=== PATIENT | male | born 1950 | race Caucasian/White ===

== ENCOUNTER → 2018-09-14 07:41 | Outpatient (CLI) | payer MEDICARE, SELFPAY ==
[2018-09-14 08:20] LABS: Appearance Urine UA CLEAR; Bilirubin Urine UA NEGATIVE (NEGATIVE); Color Urine UA YELLOW; Glucose Urine UA NEGATIVE (Negative); Ketones Urine UA NEGATIVE (NEGATIVE); Leukocyte Esterase Urine UA NEGATIVE (NEGATIVE); Nitrite Urine UA NEGATIVE (Negative); Occult Blood Urine UA NEGATIVE (Negative); Protein Urine UA NEGATIVE (Negative); Urobilinogen Urine UA 0.2 E.U./dL (0.2); pH Urine UA 6.5 (4.5-8.0)
[2018-09-14 08:22] LABS: Add Manual Diff / Slide Review NO; Basophils Absolute Auto 0 /uL (0-100); Basophils Percent Auto 0.6 % (0-2); Eosinophils Absolute Auto 100 /uL (0-450); Eosinophils Percent Auto 2.3 % (2-4); Hematocrit 42.1 % (41-53); Hemoglobin 14.6 g/dL (13.5-17.5); Lymphocytes Absolute Auto 1900 /uL (1100-4500); Lymphocytes Percent Auto 30.3 % (25-40); Mean Corpuscular HGB Conc 34.8 % (30-36); Mean Corpuscular Volume 80.5 fL (80-100); Monocytes Absolute Auto 600 /uL (0-900); Monocytes Percent Auto 8.9 % (3-14); Neutrophils Absolute Auto 3700 /uL (1500-7000); Neutrophils Percent Auto 57.9 % (50-75); Platelet Count 280 X10^3/uL (150-400); Red Blood Cell Count 5.22 X10^6/uL (4.5-5.9); Red Cell Distribution Width 13.8 % (11.6-14.8); White Blood Cell Count 6.4 X10^3/uL (4.5-11.0)
[2018-09-14 08:48] LABS: Alanine Aminotransferase 51 IU/L (21-72); Albumin 4.7 g/dL (3.5-5.0); Albumin Globulin Ratio 1.4 (1.0-2.8); Alkaline Phosphatase 94 U/L (38-126); Aspartate Aminotransferase 40 IU/L (17-59); Bilirubin Total 1.3 mg/dL (0.2-1.3); Blood Urea Nitrogen 18 mg/dL (9-20); Calcium 9.5 mg/dL (8.4-10.2); Carbon Dioxide 30 mmol/L (22-32); Chloride 101 mmol/L (98-107); Cholesterol 277 mg/dL (140-199); Estimated Glomerular Filt Rate > 60.0 mL/min (>60); Globulin 3.3 g/dL (1.7-4.1); Glucose 100 mg/dL (80-110); HDL Cholesterol 50 mg/dL (40-60); HEMOLYSIS < 15 (0-50); LDL Cholesterol Calculated 211 mg/dL (<100); Potassium 4.8 mmol/L (3.4-5.1); Sodium 140 mmol/L (137-145); Triglycerides 82 mg/dL (35-150)
[2018-09-14 09:10] LABS: Thyroid Stimulating Hormone 2.77 uIU/mL (0.47-4.68)
== END ==
PROVIDERS: PCP Family Medicine; Visit Provider Internal Medicine Interventional Cardiology
DX: I10 Essential (primary) hypertension (principal); I35.1 Nonrheumatic aortic (valve) insufficiency; I77.810 Thoracic aortic ectasia; F52.21 Male erectile disorder; G62.9 Polyneuropathy, unspecified; Z51.81 Encounter for therapeutic drug level monitoring; E78.5 Hyperlipidemia, unspecified; Z12.5 Encounter for screening for malignant neoplasm of prostate
CPT/HCPCS: 36415; 80053; 80061; 81003; 84403; 84443; 85025; G0103

== ENCOUNTER → 2018-12-04 08:24 | Outpatient (CLI) | payer MEDICARE, SELFPAY ==
[2018-12-10 09:25] LABS: PSA Total 4.53 ng/mL (< 4.01); Reflex Free PSA 0.6 ng/mL
== END ==
PROVIDERS: PCP Family Medicine; Visit Provider Urology
DX: R97.20 Elevated prostate specific antigen [PSA] (principal); Z12.5 Encounter for screening for malignant neoplasm of prostate
CPT/HCPCS: 36415; 84153; 84154

== ENCOUNTER 2018-12-26 23:26 | Inpatient (IN) | payer MEDICARE, SELFPAY ==
[2018-12-26 23:44] VITALS: BP 153/81; PULSE 79; RESP 18; TEMP 36.3; O2SAT 96; BMI 28.0
[2018-12-27] VITALS (22 sets, daily range): BP systolic 102–156; BP diastolic 54–95; PULSE 58–92; RESP 6–20; TEMP 36.1–37.4; O2SAT 88–100; BMI 28.0
[2018-12-27] MEDS: SODIUM CHLORIDE 0.9% 1,000 ML 150 ML IV (00:26)
[2018-12-27 01:31] LABS: Add Manual Diff / Slide Review NO; Basophils Absolute Auto 0 /uL (0-100); Basophils Percent Auto 0.3 % (0-2); Eosinophils Absolute Auto 100 /uL (0-450); Eosinophils Percent Auto 0.5 % (2-4); Hematocrit 40.3 % (41-53); Hemoglobin 13.9 g/dL (13.5-17.5); Lymphocytes Absolute Auto 1100 /uL (1100-4500); Lymphocytes Percent Auto 9.3 % (25-40); Mean Corpuscular HGB Conc 34.5 % (30-36); Mean Corpuscular Hemoglobin 27.7 PG (26-34); Mean Corpuscular Volume 80.1 fL (80-100); Monocytes Absolute Auto 500 /uL (0-900); Monocytes Percent Auto 4.2 % (3-14); Neutrophils Absolute Auto 9800 /uL (1500-7000); Neutrophils Percent Auto 85.7 % (50-75); Platelet Count 230 X10^3/uL (150-400); Red Blood Cell Count 5.03 X10^6/uL (4.5-5.9); Red Cell Distribution Width 13.9 % (11.6-14.8); White Blood Cell Count 11.4 X10^3/uL (4.5-11.0)
[2018-12-27 01:41] LABS: Alanine Aminotransferase 88 IU/L (21-72); Albumin 4.7 g/dL (3.5-5.0); Albumin Globulin Ratio 1.6 (1.0-2.8); Alkaline Phosphatase 108 U/L (38-126); Aspartate Aminotransferase 55 IU/L (17-59); BUN Creatinine Ratio 25.6 (6-22); Bilirubin Total 1.4 mg/dL (0.2-1.3); Blood Urea Nitrogen 23 mg/dL (9-20); Calcium 9.8 mg/dL (8.4-10.2); Carbon Dioxide 30 mmol/L (22-32); Chloride 100 mmol/L (98-107); Estimated Glomerular Filt Rate > 60.0 mL/min (>60); Glucose 125 mg/dL (80-110); HEMOLYSIS < 15 (0-50); Lipase 88 U/L (23-300); Potassium 4.5 mmol/L (3.4-5.1); Sodium 139 mmol/L (137-145); Total Protein 7.7 g/dL (6.3-8.2)
--- NOTE | 2018-12-27 03:19 | DI.RAD.S_ITS ---
PROCEDURE: XR ACUTE ABDOMEN SERIES INDICATIONS: Abdominal pain TECHNIQUE: One view chest and two views of the abdomen were acquired. COMPARISON: None. FINDINGS: Surgical changes and devices: None. Chest: Mild bibasilar atelectatic changes. Otherwise clear lungs. Heart size is normal. No pleural effusions. No pneumoperitoneum. Abdomen: Relative paucity of small bowel gas. No air-fluid levels visible. No suspicious calcifications. Visualized solid organ contours appear normal. Bones: No suspicious bony lesions. Degenerative disc change at L5-S1. IMPRESSION: No radiographic evidence of acute process. Dictated by: Uzma Lewis M.D. on 12/27/2018 at 8:25 Approved by: Uzma Lewis M.D. on 12/27/2018 at 8:27
--- NOTE | 2018-12-27 03:33 | DI.CT.S_ITS ---
PROCEDURE: CT ABDOMEN PELVIS W CON INDICATIONS: severe abdominal pain TECHNIQUE: After the administration of intravenous contrast, 5 mm thick sections acquired from the diaphragm to the symphysis. 5 mm coronal and sagittal reformats were acquired. For radiation dose reduction, the following was used: automated exposure control, adjustment of mA and/or kV according to patient size. COMPARISON: None. FINDINGS: Image quality: Excellent. ABDOMEN: Lung bases: Lung bases are clear. Heart size is normal. Solid organs: Liver is normal in size and enhancement. A few tiny scattered hepatic cystic structures too small to accurately characterize. Gallbladder is decompressed. Biliary system is non dilated. Pancreas enhances normally. Spleen is normal in size and enhancement. No adrenal nodules. Kidneys demonstrate normal size and enhancement, without hydronephrosis. 2.8 cm left interpolar cystic structure, indeterminate on this study. Punctate right upper pole intrarenal calculus. Peritoneum and bowel: Mildly dilated left abdominal small bowel loops with signs of stasis in the left lower quadrant. A transition point is identified in the left lower quadrant (series 2 image 67 and series 4 image 33). Immediately distal, the small bowel loops demonstrate circumferentially thickened becerra. The ileum is largely decompressed. A normal appendix is present. Normal quantity of stool in the colon. The small amount of free fluid is dependent in the pelvis and also seen in the left lower quadrant. No abscess. Nodes and vessels: No retroperitoneal or mesenteric adenopathy by size criteria. Aorta and inferior vena cava are normal in size. Miscellaneous: No ventral hernias. PELVIS: Genitourinary: Bladder wall thickness is normal. Miscellaneous: No inguinal hernias or adenopathy. Bones: No suspicious bony lesions. No vertebral body compression fractures. IMPRESSION: 1. Small bowel obstruction with transition point identified in the left lower quadrant. 2. Small bowel loops immediately distal to the site of obstruction demonstrate thickened becerra raising possibility of inflammation as an etiology for obstruction. Correlate with any history of inflammatory bowel disease. 3. Nonobstructing right upper pole intrarenal calcification. 4. Indeterminant left renal cyst. Consider routine ultrasound followup. Concordant with preliminary results. Dictated by: Uzma Lewis M.D. on 12/27/2018 at 8:27 Approved by: Uzma Lewis M.D. on 12/27/2018 at 8:35
--- NOTE | 2018-12-27 03:36 | PC.NURSE ---
pt vomiting in xray, provider notified, orders received. zofran administered in xray.
[2018-12-27] MEDS: ONDANSETRON 4 MG/2 ML INJ IV (03:37)
--- NOTE | 2018-12-27 03:46 | ED.ABDPAIN ---
HPI - Abdominal Pain General Chief Complaint: Abdominal Pain Stated Complaint: ABDOMINAL PAIN 6 HOURS Time Seen by Provider: 12/26/18 23:34 Source: patient Mode of arrival: ambulatory Limitations: no limitations History of Present Illness HPI narrative: 68M nonsmoker presents with a chief complaint of a day or 2 of episodes of severe epigastric pain without radiation, provocation or palliation. He has had nausea and vomiting. He denies fever or chills. He denies any history of the same. When present is incredibly intense or a few minutes and period of more mild presentation. Denies fever or chills. He denies any history of the same. Related Data Home Medications Medication Instructions Recorded Confirmed amlodipine 5 mg tablet 5 mg PO BID tab 09/08/18 12/22/18 losartan 50 mg tablet 50 mg PO DAILY 09/08/18 12/22/18 Previous Rx's Medication Instructions Recorded atorvastatin 40 mg tablet 40 mg PO DAILY #30 tab 09/17/18 sildenafil 50 mg tablet 50 mg PO DAILY PRN #6 tab 12/22/18 Allergies Allergy/AdvReac Type Severity Reaction Status Date / Time No Known Drug Allergies Allergy Verified 12/22/18 11:17 Review of Systems Constitutional Denies chills, Denies fever(s), Denies lethargy and Denies weakness Eyes Denies change in vision, Denies eye discharge, Denies irritation and Denies loss of vision ENT Ears, Nose, Mouth, and Throat: Denies change in voice, Denies neck pain and Denies sore throat Cardiovascular Denies chest pain, Denies irregular heart rhythm, Denies lightheadedness, Denies palpitations, Denies dyspnea, Denies dyspnea on exertion and Denies orthopnea Respiratory Denies cough, Denies dyspnea, Denies dyspnea on exertion and Denies wheezing Gastrointestinal Gastrointestinal: Reports abdominal pain, Denies change in bowel habits, Denies diarrhea, Reports nausea and Reports vomiting Genitourinary Denies hematuria, Denies flank pain, Denies urinary incontinence and Denies urinary urgency Musculoskeletal Denies neck pain Integumentary/Breasts Denies pruritus, Denies erythema, Denies rash and Denies wounds Neurologic Denies confusion, Denies loss of vision and Denies weakness Psychiatric Denies anxiety, Denies confusion, Denies depression, Denies homicidal ideation and Denies suicidal ideation Endocrine Denies palpitations Hematologic/Lymphatic Denies easy bruising Allergic/Immunologic Denies wheezing [facility] Medical History Headache (Chronic ~2016) Hypertension (Chronic ~2014) Peripheral neuropathy (Chronic ~2015) Measles (Resolved ~1954) Surgical History Anesthesia (Resolved) Fractures (Resolved) [place] teeth removed (Resolved ~1975) Family History Father Hyperlipidemia Mother Glaucoma Brother Brain aneurysm Brother Nerve damage Sister Hypertension Social History Smoking Status: Never smoker alcohol intake: current (Rare) Family History Father Hyperlipidemia Mother Glaucoma Brother Brain aneurysm Brother Nerve damage Sister Hypertension Social History Smoking Status: Never smoker alcohol intake: current (Rare) Exam Narrative Exam Narrative: GENERAL: 68-year-old male, appears stated age obviously quite uncomfortable HEAD: Atraumatic. Normocephalic. No temporal or scalp tenderness. EYES: Pupils equal round and reactive. Extraocular motions intact. No scleral icterus. No injection or drainage. ENT: Nose without bleeding, purulent drainage or septal hematoma. Throat without erythema, tonsillar hypertrophy or exudate. Uvula midline. Airway patent. NECK: Trachea midline. No JVD or lymphadenopathy. Supple, nontender, no meningeal signs. CARDIOVASCULAR: Regular rate and rhythm without murmurs, gallops, or rubs. RESPIRATORY: Clear to auscultation. Breath sounds equal bilaterally. No wheezes, rales, or rhonchi. GASTROINTESTINAL: Abdomen soft, tender mid abdomen, nondistended. No hepato-splenomegaly, or palpable masses. No guarding. EXTREMITIES: No clubbing, cyanosis, or edema. No joint tenderness, effusion, or edema noted. BACK: Nontender without deformity or crepitance. No flank tenderness. NEURO: AOx3. SKIN: No rash or erythema. Initial Vital Signs Initial Vital Signs: Vital Signs Temperature 97.3 F L 12/26/18 23:44 Pulse Rate 79 12/26/18 23:44 Respiratory Rate 18 12/26/18 23:44 Blood Pressure 153/81 H 12/26/18 23:44 Pulse Oximetry 96 12/26/18 23:44 Course Orders Ordered: ED Orders 12/27/18 01:20 Complete Blood Count AUTO DIFF Stat Comprehensive Metabolic Panel Stat Lipase Stat 12/27/18 03:19 XR acute abdomen series Stat 12/27/18 03:33 CT abdomen pelvis w con Stat Sodium Chloride (Normal Saline 0.9%) 1,000 mls @ 150 mls/hr IV CONT NIKOLAI Last Infusion: 12/27/18 05:01 Dose: 0 mls/hr Admin: 12/27/18 00:26 Dose: 150 mls/hr Lactated Ringer's (Lactated Ringers) 500 mls @ 1,000 mls/hr IV BOLUS ONE Stop: 12/27/18 05:51 Last Admin: 12/27/18 05:33 Dose: 1,000 mls/hr Discontinued Medications Ondansetron HCl (Zofran) 4 mg IV NOW ONE Stop: 12/27/18 03:36 Last Admin: 12/27/18 03:37 Dose: 4 mg Reevaluation(s) Reevaluation #1: Patient with increasing pain begins vomiting on weight x-ray Consultations Consultation #1: Dr. Francois happy to see the patient. He requested NG tube be placed Vital Signs - 8 hr 12/26/18 23:44 12/27/18 04:27 Temperature 97.3 F L Pulse Rate 79 68 Respiratory Rate 18 18 Blood Pressure 153/81 H Blood Pressure [Left Arm] 143/66 H Pulse Oximetry 96 100 MDM - Abdominal Pain Lab Data Result diagrams: 12/27/18 01:20 12/27/18 01:20 Lab Results 12/27/18 12/27/18 Range/Units 01:20 01:20 WBC 11.4 H (4.5-11.0) X10^3/uL RBC 5.03 (4.5-5.9) X10^6/uL Hgb 13.9 (13.5-17.5) g/dL Hct 40.3 L (41-53) % MCV 80.1 (80-100) fL MCH 27.7 (26-34) PG MCHC 34.5 (30-36) % RDW 13.9 (11.6-14.8) % Plt Count 230 (150-400) X10^3/uL Neut % (Auto) 85.7 H (50-75) % Lymph % (Auto) 9.3 L (25-40) % [place] % (Auto) 4.2 (3-14) % Eos % (Auto) 0.5 L (2-4) % Baso % (Auto) 0.3 (0-2) % Neut # (Auto) 9800 H (9125-0280) /uL Lymph # (Auto) 1100 (5843-3815) /uL [place] # (Auto) 500 (0-900) /uL Eos # (Auto) 100 (0-450) /uL Baso # (Auto) 0 (0-100) /uL Sodium 139 (137-145) mmol/L Potassium 4.5 (3.4-5.1) mmol/L Chloride 100 (98-107) mmol/L Carbon Dioxide 30 (22-32) mmol/L BUN 23 H (9-20) mg/dL Creatinine 0.90 (0.66-1.25) mg/dL Estimated GFR > 60.0 (>60) mL/min BUN/Creatinine Ratio 25.6 H (6-22) Glucose 125 H (80-110) mg/dL Calcium 9.8 (8.4-10.2) mg/dL Total Bilirubin 1.4 H (0.2-1.3) mg/dL AST 55 (17-59) IU/L ALT 88 H (21-72) IU/L Alkaline Phosphatase 108 (38-126) U/L Total Protein 7.7 (6.3-8.2) g/dL Albumin 4.7 (3.5-5.0) g/dL Globulin 3.0 (1.7-4.1) g/dL Albumin/Globulin Ratio 1.6 (1.0-2.8) Lipase 88 (23-300) U/L Point of care testing: Urine Dip Bedside Urine Glucose Negative Bedside Urine Bilirubin - Negative Bedside Urine Ketone +/- 5 Urine Specific [place] 1.020 Bedside Urine Occult Blood - Negative Bedside Urine pH 7 Bedside Urine Protein - Negative Bedside Urine Urobilinogen - Negative Bedside Urine Nitrite - Negative Bedside Urine Leukocytes - Negative Esterase Imaging Data Abdominal x-ray: Attestation: I personally reviewed and interpreted this imaging study as follows: My impression: SBO CT scan - abdomen: Radiologist's impression: High-grade small-bowel obstruction, transition point in the anterior mid pelvis within mid small intestine etiology is uncertain Discharge Plan Departure Patient Disposition: Admitted As Inpatient Clinical Impression: Partial obstruction of small intestine Referrals: Johnna Diaz DO [Primary Care Provider] - Admit Date/Time: 12/27/18 05:33 Admit Provider: Jemal Francois
--- NOTE | 2018-12-27 03:50 | ED_ITS ---
HPI - Abdominal Pain General Chief Complaint: Abdominal Pain Stated Complaint: ABDOMINAL PAIN 6 HOURS Time Seen by Provider: 12/26/18 23:34 Source: patient Mode of arrival: ambulatory Limitations: no limitations History of Present Illness HPI narrative: 68M nonsmoker presents with a chief complaint of a day or 2 of episodes of severe epigastric pain without radiation, provocation or palliation. He has had nausea and vomiting. He denies fever or chills. He denies any history of the same. When present is incredibly intense or a few minutes and period of more mild presentation. Denies fever or chills. He denies any history of the same. Related Data Home Medications Medication Instructions Recorded Confirmed amlodipine 5 mg tablet 5 mg PO BID tab 09/08/18 12/22/18 losartan 50 mg tablet 50 mg PO DAILY 09/08/18 12/22/18 Previous Rx's Medication Instructions Recorded atorvastatin 40 mg tablet 40 mg PO DAILY #30 tab 09/17/18 sildenafil 50 mg tablet 50 mg PO DAILY PRN #6 tab 12/22/18 Allergies Allergy/AdvReac Type Severity Reaction Status Date / Time No Known Drug Allergies Allergy Verified 12/22/18 11:17 Review of Systems Constitutional Denies chills, Denies fever(s), Denies lethargy and Denies weakness Eyes Denies change in vision, Denies eye discharge, Denies irritation and Denies loss of vision ENT Ears, Nose, Mouth, and Throat: Denies change in voice, Denies neck pain and Denies sore throat Cardiovascular Denies chest pain, Denies irregular heart rhythm, Denies lightheadedness, Denies palpitations, Denies dyspnea, Denies dyspnea on exertion and Denies orthopnea Respiratory Denies cough, Denies dyspnea, Denies dyspnea on exertion and Denies wheezing Gastrointestinal Gastrointestinal: Reports abdominal pain, Denies change in bowel habits, Denies diarrhea, Reports nausea and Reports vomiting Genitourinary Denies hematuria, Denies flank pain, Denies urinary incontinence and Denies urinary urgency Musculoskeletal Denies neck pain Integumentary/Breasts Denies pruritus, Denies erythema, Denies rash and Denies wounds Neurologic Denies confusion, Denies loss of vision and Denies weakness Psychiatric Denies anxiety, Denies confusion, Denies depression, Denies homicidal ideation and Denies suicidal ideation Endocrine Denies palpitations Hematologic/Lymphatic Denies easy bruising Allergic/Immunologic Denies wheezing [facility] Medical History Headache (Chronic ~2016) Hypertension (Chronic ~2014) Peripheral neuropathy (Chronic ~2015) Measles (Resolved ~1954) Surgical History Anesthesia (Resolved) Fractures (Resolved) [place] teeth removed (Resolved ~1975) Family History Father Hyperlipidemia Mother Glaucoma Brother Brain aneurysm Brother Nerve damage Sister Hypertension Social History Smoking Status: Never smoker alcohol intake: current (Rare) Family History Father Hyperlipidemia Mother Glaucoma Brother Brain aneurysm Brother Nerve damage Sister Hypertension Social History Smoking Status: Never smoker alcohol intake: current (Rare) Exam Narrative Exam Narrative: GENERAL: 68-year-old male, appears stated age obviously quite uncomfortable HEAD: Atraumatic. Normocephalic. No temporal or scalp tenderness. EYES: Pupils equal round and reactive. Extraocular motions intact. No scleral icterus. No injection or drainage. ENT: Nose without bleeding, purulent drainage or septal hematoma. Throat without erythema, tonsillar hypertrophy or exudate. Uvula midline. Airway patent. NECK: Trachea midline. No JVD or lymphadenopathy. Supple, nontender, no meningeal signs. CARDIOVASCULAR: Regular rate and rhythm without murmurs, gallops, or rubs. RESPIRATORY: Clear to auscultation. Breath sounds equal bilaterally. No wheezes, rales, or rhonchi. GASTROINTESTINAL: Abdomen soft, tender mid abdomen, nondistended. No hepato- splenomegaly, or palpable masses. No guarding. EXTREMITIES: No clubbing, cyanosis, or edema. No joint tenderness, effusion, or edema noted. BACK: Nontender without deformity or crepitance. No flank tenderness. NEURO: AOx3. SKIN: No rash or erythema. Initial Vital Signs Initial Vital Signs: Vital Signs Temperature 97.3 F L 12/26/18 23:44 Pulse Rate 79 12/26/18 23:44 Respiratory Rate 18 12/26/18 23:44 Blood Pressure 153/81 H 12/26/18 23:44 Pulse Oximetry 96 12/26/18 23:44 Course Orders Ordered: ED Orders 12/27/18 01:20 Complete Blood Count AUTO DIFF Stat Comprehensive Metabolic Panel Stat Lipase Stat 12/27/18 03:19 XR acute abdomen series Stat 12/27/18 03:33 CT abdomen pelvis w con Stat Sodium Chloride (Normal Saline 0.9%) 1,000 mls @ 150 mls/hr IV CONT NIKOLAI Last Infusion: 12/27/18 05:01 Dose: 0 mls/hr Admin: 12/27/18 00:26 Dose: 150 mls/hr Lactated Ringer's (Lactated Ringers) 500 mls @ 1,000 mls/hr IV BOLUS ONE Stop: 12/27/18 05:51 Last Admin: 12/27/18 05:33 Dose: 1,000 mls/hr Discontinued Medications Ondansetron HCl (Zofran) 4 mg IV NOW ONE Stop: 12/27/18 03:36 Last Admin: 12/27/18 03:37 Dose: 4 mg Reevaluation(s) Reevaluation #1: Patient with increasing pain begins vomiting on weight x-ray Consultations Consultation #1: Dr. Francois happy to see the patient. He requested NG tube be placed Vital Signs - 8 hr 12/26/18 23:44 12/27/18 04:27 Temperature 97.3 F L Pulse Rate 79 68 Respiratory Rate 18 18 Blood Pressure 153/81 H Blood Pressure [Left Arm] 143/66 H Pulse Oximetry 96 100 MDM - Abdominal Pain Lab Data Result diagrams: 12/27/18 01:20 12/27/18 01:20 Lab Results 12/27/18 12/27/18 Range/Units 01:20 01:20 WBC 11.4 H (4.5-11.0) X10^3/uL RBC 5.03 (4.5-5.9) X10^6/uL Hgb 13.9 (13.5-17.5) g/dL Hct 40.3 L (41-53) % MCV 80.1 (80-100) fL MCH 27.7 (26-34) PG MCHC 34.5 (30-36) % RDW 13.9 (11.6-14.8) % Plt Count 230 (150-400) X10^3/uL Neut % (Auto) 85.7 H (50-75) % Lymph % (Auto) 9.3 L (25-40) % [place] % (Auto) 4.2 (3-14) % Eos % (Auto) 0.5 L (2-4) % Baso % (Auto) 0.3 (0-2) % Neut # (Auto) 9800 H (9039-9698) /uL Lymph # (Auto) 1100 (4049-4496) /uL [place] # (Auto) 500 (0-900) /uL Eos # (Auto) 100 (0-450) /uL Baso # (Auto) 0 (0-100) /uL Sodium 139 (137-145) mmol/L Potassium 4.5 (3.4-5.1) mmol/L Chloride 100 (98-107) mmol/L Carbon Dioxide 30 (22-32) mmol/L BUN 23 H (9-20) mg/dL Creatinine 0.90 (0.66-1.25) mg/dL Estimated GFR > 60.0 (>60) mL/min BUN/Creatinine Ratio 25.6 H (6-22) Glucose 125 H (80-110) mg/dL Calcium 9.8 (8.4-10.2) mg/dL Total Bilirubin 1.4 H (0.2-1.3) mg/dL AST 55 (17-59) IU/L ALT 88 H (21-72) IU/L Alkaline Phosphatase 108 (38-126) U/L Total Protein 7.7 (6.3-8.2) g/dL Albumin 4.7 (3.5-5.0) g/dL Globulin 3.0 (1.7-4.1) g/dL Albumin/Globulin Ratio 1.6 (1.0-2.8) Lipase 88 (23-300) U/L Point of care testing: Urine Dip Bedside Urine Glucose Negative Bedside Urine Bilirubin - Negative Bedside Urine Ketone +/- 5 Urine Specific [place] 1.020 Bedside Urine Occult Blood - Negative Bedside Urine pH 7 Bedside Urine Protein - Negative Bedside Urine Urobilinogen - Negative Bedside Urine Nitrite - Negative Bedside Urine Leukocytes - Negative Esterase Imaging Data Abdominal x-ray: Attestation: I personally reviewed and interpreted this imaging study as follows: My impression: SBO CT scan - abdomen: Radiologist's impression: High-grade small-bowel obstruction, transition point in the anterior mid pelvis within mid small intestine etiology is uncertain Discharge Plan Departure Patient Disposition: Admitted As Inpatient Clinical Impression: Partial obstruction of small intestine Referrals: Johnna Diaz DO [Primary Care Provider] - Admit Date/Time: 12/27/18 05:33 Admit Provider: Jemal Francois
[2018-12-27] MEDS: LACTATED RINGERS 500 ML 1000 ML IV (05:33)
--- NOTE | 2018-12-27 05:40 | PM.HP.1 ---
History of Present Illness Date Patient Seen: 12/27/18 Time Patient Seen: 05:00 Chief complaint: ABDOMINAL PAIN 6 HOURS Narrative: Patient is a gentleman who developed crampy obtain intermittent abdominal pain yesterday accompanied by vomiting last night. He has not had this before. He has had no prior operations. Pain can become quite intense. Patient History Medical History Headache (Chronic ~2016) Hypertension (Chronic ~2014) Peripheral neuropathy (Chronic ~2015) Measles (Resolved ~1954) Surgical History Anesthesia (Resolved) Fractures (Resolved) [place] teeth removed (Resolved ~1975) Family History Father Hyperlipidemia Mother Glaucoma Brother Brain aneurysm Brother Nerve damage Sister Hypertension Social History Smoking Status: Never smoker alcohol intake: current (Rare) Family & Social History Family History Father Hyperlipidemia Mother Glaucoma Brother Brain aneurysm Brother Nerve damage Sister Hypertension Tobacco & Substance use: Smoking Status Never smoker alcohol intake current alcohol intake frequency 0-2 drinks per day Substance Use Type does not use Meds Home Medications Medication Instructions Recorded Confirmed Type amlodipine 5 mg tablet 5 mg PO BID tab 09/08/18 12/22/18 History losartan 50 mg tablet 50 mg PO DAILY 09/08/18 12/22/18 History atorvastatin 40 mg tablet 40 mg PO DAILY #30 tab 09/17/18 12/22/18 Rx sildenafil 50 mg tablet 50 mg PO DAILY PRN #6 tab 12/22/18 Rx Allergies Allergy/AdvReac Type Severity Reaction Status Date / Time No Known Drug Allergies Allergy Verified 12/22/18 11:17 Review of Systems Review of Systems Patient denies pain is eyes double vision earache sore throats trouble swallowing. Patient denies tooth aches. He has no breathing issues cough cold or asthma. Denies any chest pain or heart problems or murmurs. He did see a automatic pad making machine operator because his blood pressure was very high but was told his heart was normal except for perhaps a small murmur. Patient has no black or bloody bowel movements. He has never had a colonoscopy. He has no dysuria or hematuria or kidney stones. No seizures or blackouts. No problems this pancreas or thyroid he is aware of. No unusual bruising or bleeding. Exam Vital Signs (past 8 hours): - 12/26/18 23:44 12/27/18 04:27 Temperature 97.3 F L Pulse Rate 79 68 Respiratory Rate 18 18 Blood Pressure 153/81 H Blood Pressure [Left Arm] 143/66 H Pulse Oximetry 96 100 Oxygen Delivery Method Room Air Narrative Exam Narrative: Operative no apparent distress. His eyes are nonicteric. Pupils equal round reactive to light. Conjunctivae are pink. Oral mucosa is dry no open lesions. Teeth are intact. There are no nodes in the neck or supraclavicular areas. Trachea is midline mobile. Thyroid is not enlarged. Lungs are clear to auscultation without rales or rhonchi. Equal percussion. Heart regular rate and rhythm without murmur gallop. No heave lift or thrill. Abdomen is mildly distended and soft. No hernias are appreciated. No tenderness at this time. Extremities without cyanosis clubbing edema or deformity. 2+ dorsalis pedis and tibialis posterior pulses in the feet. Decreased hair in the lower extremities. Alert and oriented x3. Speech rate and content are appropriate. Extraocular movements are intact face is symmetric uvula elevates in the midline. Objective Labs Result Diagrams: 12/27/18 01:20 12/27/18 01:20 Labs: Laboratory Results - last 24 hr 12/27/18 12/27/18 01:20 01:20 WBC 11.4 H RBC 5.03 Hgb 13.9 Hct 40.3 L MCV 80.1 MCH 27.7 MCHC 34.5 RDW 13.9 Plt Count 230 Neut % (Auto) 85.7 H Lymph % (Auto) 9.3 L [place] % (Auto) 4.2 Eos % (Auto) 0.5 L Baso % (Auto) 0.3 Neut # (Auto) 9800 H Lymph # (Auto) 1100 [place] # (Auto) 500 Eos # (Auto) 100 Baso # (Auto) 0 Sodium 139 Potassium 4.5 Chloride 100 Carbon Dioxide 30 BUN 23 H Creatinine 0.90 Estimated GFR > 60.0 BUN/Creatinine Ratio 25.6 H Glucose 125 H Calcium 9.8 Total Bilirubin 1.4 H AST 55 ALT 88 H Alkaline Phosphatase 108 Total Protein 7.7 Albumin 4.7 Globulin 3.0 Albumin/Globulin Ratio 1.6 Lipase 88 Assessment & Plan Assessment & Plan narrative: Reviewed the patient's CT scan. He has a small bowel obstruction. His high-grade in appearance with a distinct transition to very collapsed small bowel. Stomach is quite distended with fluid. We will place an NG tube. Because he has had no prior operations this is likely to be a single band or something like tumor which I think is very unlikely. Proceed to the operating room. I have discussed the procedure with him in the uncertainty of what I am going to do. The potential for bowel resection discussed. All questions answered.
--- NOTE | 2018-12-27 06:11 | PM.PREOP ---
Pre-operative Note Interval Note History & Physical reviewed/Exam performed by Physician: Yes Changes to H&P: No
--- NOTE | 2018-12-27 06:11 | PC.NURSE ---
LR to continue in OR
[2018-12-27] MEDS: CEFOTETAN 2 GM/50 ML PIGGYBACK IV (06:20)
--- NOTE | 2018-12-27 06:43 | SUR.OPER ---
Supine on padded OR bed, head on pillow, arms secured on padded arm boards at <90 degrees abduction, legs uncrossed, safety belt at thigh, tape over blanket over lower legs.
[2018-12-27] MEDS: BUPIVACAINE 0.25% W/ EPI (PF) 10 ML VIAL 20 ML INJ (07:19)
--- NOTE | 2018-12-27 07:54 | SUR.PHASEI ---
NG to LIS, draining medium brown fluid.
[2018-12-27] MEDS: HYDROMORPHONE 2 MG INJ 0.25 MG IV ×5 (08:13→08:47)
--- NOTE | 2018-12-27 08:14 | PM.OP.1 ---
Operative Date/Time/Diagnoses Date of procedure: 12/27/18 Time of procedure: 08:00 Pre-op diagnosis: small bowel obstruction Post-op diagnosis: same (Secondary to intestinal bezoar) Procedure & Clinicians Procedure: Exploratory laparotomy Same procedure as scheduled: Yes Indications: High-grade small bowel obstruction Surgeon: Jemal Francois Click Yes if Unassisted: Yes Anesthesia Type: General Operative Notes Findings: Large amount of vegetable material in a point of obstruction in the small bowel. Materials milk down through the small bowel. There were no adhesions from the point of obstruction distal to the ileocecal valve. Closure Type: primary Specimen(s): none sent Estimated Blood Loss (mL): 10 Procedure in detail: The patient is placed supine on the operating room table underwent general endotracheal anesthesia. He was prepped and draped in the usual fashion. Small incisions made in the midline beneath the umbilicus. It was carried into the peritoneal cavity under direct vision. Small bowel was delivered in was readily apparent where the obstruction was. There was dilated small bowel going down to normal and is/even smaller than normal small bowel. There were no adhesions in this area however. There was nothing that I could feel other than the contents of the intestine causing the problem. Small bowel was run to the ileocecal valve. There was no evidence of any obstructive process. The small bowel was run part way proximal to confirm there was nothing proximal. I milked the contents of the small bowel which felt like vegetable material down through the small-bowel breaking it into smaller aliquots. Ultimately this appeared to solve the patient's problem. Small bowel was peristalsing as I worked. The small bowel was returned to the abdomen. The fascia was closed with [id number] 1. Maxon. The subcu was irrigated and closed with 3 0 Vicryl. Skin was closed with a running 4 0 Vicryl subcuticular stitch and Steri-Strips. Local anesthetic was infiltrated prior to closure the subcu. Dressing was applied and the patient was awakened, extubated and taken recovery area in good condition. Complications: none Condition: stable Disposition: PACU
--- NOTE | 2018-12-27 08:15 | SUR.PHASEI ---
NG tube flushed with air and water by Dr. Francois,
--- NOTE | 2018-12-27 08:18 | P.OP_ITS ---
Operative Date/Time/Diagnoses Date of procedure: 12/27/18 Time of procedure: 08:00 Pre-op diagnosis: small bowel obstruction Post-op diagnosis: same (Secondary to intestinal bezoar) Procedure & Clinicians Procedure: Exploratory laparotomy Same procedure as scheduled: Yes Indications: High-grade small bowel obstruction Surgeon: Jemal Francois Click Yes if Unassisted: Yes Anesthesia Type: General Operative Notes Findings: Large amount of vegetable material in a point of obstruction in the small bowel. Materials milk down through the small bowel. There were no adhesions from the point of obstruction distal to the ileocecal valve. Closure Type: primary Specimen(s): none sent Estimated Blood Loss (mL): 10 Procedure in detail: The patient is placed supine on the operating room table underwent general endotracheal anesthesia. He was prepped and draped in the usual fashion. Small incisions made in the midline beneath the umbilicus. It was carried into the peritoneal cavity under direct vision. Small bowel was delivered in was readily apparent where the obstruction was. There was dilated small bowel going down to normal and is/even smaller than normal small bowel. There were no adhesions in this area however. There was nothing that I could feel other than the contents of the intestine causing the problem. Small bowel was run to the ileocecal valve. There was no evidence of any obstructive process. The small bowel was run part way proximal to confirm there was nothing proximal. I milked the contents of the small bowel which felt like vegetable material down through the small-bowel breaking it into smaller aliquots. Ultimately this appeared to solve the patient's problem. Small bowel was peristalsing as I worked. The small bowel was returned to the abdomen. The fascia was closed with [id number] 1. Maxon. The subcu was irrigated and cl osed with 3 0 Vicryl. Skin was closed with a running 4 0 Vicryl subcuticular stitch and Steri-Strips. Local anesthetic was infiltrated prior to closure the subcu. Dressing was applied and the patient was awakened, extubated and taken recovery area in good condition. Complications: none Condition: stable Disposition: PACU
--- NOTE | 2018-12-27 08:40 | SUR.PHASEI ---
Report called to Sarah
--- NOTE | 2018-12-27 09:26 | SUR.PHASEI ---
Pt transferred to the floor with 1lnc O2. Report to Sarah. VS stable. IV saline locked. NG placed to LIS. Abd woodyg checked with RN. Belongings bag and ring with patient.
[2018-12-27] MEDS: LACTATED RINGERS 1,000 ML 125 ML IV ×2 (10:31→16:27)
--- NOTE | 2018-12-27 11:06 | CM.DANOTE ---
DCP Cont: Case received, EMR reviewed and met with patient. Introduced self and role. Information regarding patient's baseline health retrieved from , May. Patient was having procedure when this family independence case manager entered room. DCP template was updated with information currently available. Patient is a 68 year old male who admitted early this morning to the care of the hospitalist team. PCP: Dr. Diaz. Payer: confirmed: Medicare. Patient came to hospital secondary to severe abdominal pain. Patient holds diagnosis of high grade small bowel obstruction. Met briefly with patient's , May, for patient was having procedure done. She stated he is independent, he had never had these type of symptoms of stomach pain before. Patient is retired, and they both reside here in [place]. Their daughter was also present in room. P: DCP to continue to follow closely as plan unfolds. Will see how he progresses here in the hospital. He should be able to go home when he is medically stable. Ирина Champion RN/[employer]
--- NOTE | 2018-12-27 12:41 | PC.ADMIT ---
[email or web address] Admission Note: The patient,AGUS MALIN,68 y/o, was given written information regarding hospital policies, unit procedures and contact persons. Patient's smoking status: Never smoker. Vital Signs - 8 hr 12/27/18 07:44 12/27/18 07:47 12/27/18 07:50 Temperature 97.0 F L Pulse Rate 76 76 79 Respiratory Rate 8 L 10 L Blood Pressure 130/81 139/81 133/82 Pulse Oximetry 88 L 100 100 12/27/18 07:53 12/27/18 07:59 12/27/18 08:15 Temperature Pulse Rate 65 62 70 Respiratory Rate 11 L 8 L 15 Blood Pressure 131/71 124/70 115/75 Pulse Oximetry 100 100 94 12/27/18 08:30 12/27/18 08:45 12/27/18 09:00 Temperature Pulse Rate 76 76 58 L Respiratory Rate 13 20 6 L Blood Pressure 105/61 114/67 115/67 Pulse Oximetry 91 93 97 12/27/18 09:20 12/27/18 09:50 Temperature 97.9 F 97.7 F Pulse Rate 76 80 Respiratory Rate 18 18 Blood Pressure 115/63 140/54 L Pulse Oximetry 96 96 Patient arrived to 221 from pacu at 0920. VSS. Denies pain. Drowsy. Took a nap for several hrs. cont pulse ox on. sat high 90's on 1l/nc. removed o2, sat remains 98% on ra. IVF infusing per orders. NGT to LIS w/ kirby output. No c/o Nausea.
[2018-12-27] MEDS: ENOXAPARIN 40 MG/0.4 ML SYRINGE SUBCUT (13:46)
[2018-12-27] MEDS: KETOROLAC 30 MG/ML VIAL IV (19:33)
--- NOTE | 2018-12-27 22:54 | PC.NURSE ---
Pt denied pain except after using IS which brought on some coughing. Given toradol with good affect. NG continues to LIS, no nausea. Dressing to abdomen CDI with spots of shadow drainage.
--- NOTE | 2018-12-28 | DI.RAD.S_ITS ---
PROCEDURE: XR ACUTE ABDOMEN SERIES INDICATIONS: small bowel obstruction TECHNIQUE: One view chest and two views of the abdomen were acquired. COMPARISON: None. FINDINGS: Surgical changes and devices: An NG tube is present, the tip of which is projected over the expected gastric fundus. Chest: Lungs are clear. Heart size is normal. No pleural effusions. No pneumoperitoneum. Abdomen: There is marked gaseous distention of the small bowel. Stool and gas is visualized within the colon. No pneumatosis or pneumoperitoneum. Bones: No suspicious bony lesions. IMPRESSION: 1. Marked gaseous distention of the small bowel with gas and stool in the colon. Differential considerations include partial bowel obstruction versus ileus. Dictated by: Sneha Brush M.D. on 12/28/2018 at 18:57 Approved by: Sneha Brush M.D. on 12/28/2018 at 18:58
[2018-12-28] MEDS: KETOROLAC 30 MG/ML VIAL IV ×3 (02:42→20:46)
[2018-12-28 05:26] VITALS: BP 156/97; PULSE 85; RESP 16; TEMP 37.1; O2SAT 96
[2018-12-28 06:31] LABS: Add Manual Diff / Slide Review NO; Basophils Absolute Auto 0 /uL (0-100); Basophils Percent Auto 0.1 % (0-2); Eosinophils Absolute Auto 0 /uL (0-450); Eosinophils Percent Auto 0.1 % (2-4); Hematocrit 39.1 % (41-53); Hemoglobin 13.4 g/dL (13.5-17.5); Lymphocytes Absolute Auto 1200 /uL (1100-4500); Lymphocytes Percent Auto 9.1 % (25-40); Mean Corpuscular HGB Conc 34.4 % (30-36); Mean Corpuscular Hemoglobin 27.6 PG (26-34); Mean Corpuscular Volume 80.3 fL (80-100); Monocytes Absolute Auto 1400 /uL (0-900); Neutrophils Absolute Auto 10500 /uL (1500-7000); Neutrophils Percent Auto 79.7 % (50-75); Platelet Count 222 X10^3/uL (150-400); Red Blood Cell Count 4.86 X10^6/uL (4.5-5.9); White Blood Cell Count 13.1 X10^3/uL (4.5-11.0)
[2018-12-28 06:39] LABS: Blood Urea Nitrogen 21 mg/dL (9-20); Calcium 9.3 mg/dL (8.4-10.2); Carbon Dioxide 29 mmol/L (22-32); Chloride 102 mmol/L (98-107); Estimated Glomerular Filt Rate > 60.0 mL/min (>60); Glucose 114 mg/dL (80-110); HEMOLYSIS < 15 (0-50); Potassium 4.3 mmol/L (3.4-5.1); Sodium 139 mmol/L (137-145)
[2018-12-28] MEDS: LACTATED RINGERS 1,000 ML 125 ML IV ×2 (07:47→15:21)
[2018-12-28 08:00] VITALS: BP 136/87; PULSE 86; RESP 16; TEMP 37.1; O2SAT 95
--- NOTE | 2018-12-28 10:43 | PC.NURSE ---
Day Shift- Pt A&OX4, able to make needs known using call light. Pain to abd 1-10/03. Discussed splinting abd. NGT to LIS, clamped for ambulation in halls and restarted. Pt ambulated in halls for 2 laps around unit with professional nursing assistant, pt using walker, steady gait. Remains NPO, oral care encouragement provided. IVF infusing well to left AC PIV. Voiding qs. Lower abd dressing intact with small amount of sero-sang shadowing under dressing. BSX4, abd mild distention, no flatus passed yet.
[2018-12-28] MEDS: ENOXAPARIN 40 MG/0.4 ML SYRINGE SUBCUT (14:32)
[2018-12-28 15:50] VITALS: BP 152/98; PULSE 97; RESP 18; TEMP 36.9; O2SAT 97
--- NOTE | 2018-12-28 18:33 | PM.PNPO.1 ---
Subjective Date Patient Seen: 12/28/18 Time Patient Seen: 12:33 Interval history: Patient feels a little sore across his lower abdomen. No flatus or BM. Feels a little bit of rumbling in his abdomen. Exam Vital Signs (past 8 hours): - 12/28/18 15:50 Temperature 98.5 F Pulse Rate 97 H Respiratory Rate 18 Blood Pressure 152/98 H Pulse Oximetry 97 Oxygen Delivery Method Room Air Oxygen Flow Rate 0 Narrative Exam Narrative: Excellent respiratory effort. Lungs clear abdomen is flat soft dressing intact. No cellulitis appreciated. No unusual tenderness. Objective Labs Result Diagrams: 12/28/18 06:00 12/28/18 06:00 Labs: Laboratory Results - last 24 hr 12/28/18 12/28/18 06:00 06:00 WBC 13.1 H RBC 4.86 Hgb 13.4 L Hct 39.1 L MCV 80.3 MCH 27.6 MCHC 34.4 RDW 14.0 Plt Count 222 Neut % (Auto) 79.7 H Lymph % (Auto) 9.1 L [place] % (Auto) 11.0 Eos % (Auto) 0.1 L Baso % (Auto) 0.1 Neut # (Auto) 33147 H Lymph # (Auto) 1200 [place] # (Auto) 1400 H Eos # (Auto) 0 Baso # (Auto) 0 Sodium 139 Potassium 4.3 Chloride 102 Carbon Dioxide 29 BUN 21 H Creatinine 1.00 Estimated GFR > 60.0 BUN/Creatinine Ratio 21.0 Glucose 114 H Calcium 9.3 Assessment & Plan Post-op Postoperative Procedures Operation Date: 12/27/18 05:45 Actual Procedures Side Surgeon p Exploratory Laparotomy Jemal Francois MD Postoperative status: doing well Postoperative plan narrative: Check x-rays to see with the gas pattern looks like. I would like to pull his NG if possible. Continue to ambulate and deep breathe. Quality VTE Deep Vein Thrombosis/Pulmonary Embolism Present on Admission: No
[2018-12-28] MEDS: DEXTROSE 5%-NS W/KCL 20MEQ 1,000 ML 125 MEQ IV (20:48)
[2018-12-28 20:53] VITALS: BP 163/81; PULSE 87; RESP 18; TEMP 37.2; O2SAT 97
--- NOTE | 2018-12-28 22:48 | PC.NURSE ---
Had abdominal series xray this evening. Call from Dr Francois to continue NG at [facility] for now. Pt tolerating well. Denies pain, had one dose of toradol to maintain pain free status.
[2018-12-28 23:00] VITALS: BP 151/91; PULSE 86; RESP 16; TEMP 36.4; O2SAT 99
--- NOTE | 2018-12-29 | DI.RAD.S_ITS ---
PROCEDURE: XR ABDOMEN MIN 2V INDICATIONS: f/u sbo. ng out TECHNIQUE: 2 views of the abdomen were acquired. COMPARISON: [facility], CT, CT ABDOMEN PELVIS W CON, 12/27/2018, 3:38. FINDINGS: Surgical changes and devices: None. Bowel: Continued small bowel obstruction. No free air. Soft tissues: No masses; visualized solid organ contours appear normal in size. No suspicious abdominal calcifications. Bones: No suspicious bony abnormalities. IMPRESSION: Continued small bowel obstruction. Dictated by: Satya Joaquin M.D. on 12/29/2018 at 20:39 Approved by: Satya Joaquin M.D. on 12/29/2018 at 20:40
--- NOTE | 2018-12-29 01:11 | PC.NURSE ---
Pt reported that he was passing flatus this night and belching. Pt now resting. VSS, Lung sounds clear bilaterally, PRN toridol for pain Q6 hours. Dressing clean, dry and intact.
[2018-12-29] MEDS: KETOROLAC 30 MG/ML VIAL IV ×2 (02:39→20:32)
[2018-12-29] MEDS: SODIUM CHLORIDE 0.9% FLUSH 10 ML IV ×2 (02:40→20:33)
[2018-12-29 04:32] VITALS: BP 156/89; PULSE 93; RESP 16; TEMP 37; O2SAT 96
[2018-12-29] MEDS: DEXTROSE 5%-NS W/KCL 20MEQ 1,000 ML 125 MEQ IV ×3 (04:42→22:10)
--- NOTE | 2018-12-29 05:34 | PC.NURSE ---
During Pt check at 0400, noticed NG suction sounded like it was sucking air and pt.'s NG tube is approximately 2 inches withdrawn. Suction was turned off for 1hr. Pt denies nausea, and feels like his stomach is gurgling. He is passing flatus and belching. Bowel tones positive x 4 quadrants. I called on-call doc Dr. Loza at 0530, per Dr. Loza, his instructions were to wait until sees the pt this am to make a decision about pulling tube or re-inserting. NG suction is off.
--- NOTE | 2018-12-29 05:46 | PC.NURSE ---
NG intermittent suction turned back on. Will let oncoming shift see if they can talk to Dr. Francois early AM.
[2018-12-29 08:11] VITALS: BP 152/78; PULSE 86; RESP 16; TEMP 36.6; O2SAT 97
[2018-12-29] MEDS: BISACODYL 10 MG SUPP PR (09:23)
[2018-12-29 11:18] VITALS: BP 163/87; PULSE 86; RESP 17; TEMP 36.8; O2SAT 96
--- NOTE | 2018-12-29 12:16 | PC.NURSE ---
Addendum entered by Shira Lux R.N. 12/29/18 15:34: Paged Dr. Francois at 1325 to report pt having BM earlier and to assess if pt can be more than NPO. Evening RN aware. Original Note: Day Shift- Pt A&OX4, Denies pain,but does report mild discomfort with movement, coughing. Advised of abd splinting. INF infusing well to left AC PIV. NGT on intermittent suction around 100 this AM. NGT removed by Dr. Francois at 0915, no output for this shift. Pt had shower this morning. One time order of Bisacodyl given at 0925. Pt reported having moderate soft formed, snake-like BM at 1130. Remains NPO at this time.
[2018-12-29] MEDS: ENOXAPARIN 40 MG/0.4 ML SYRINGE SUBCUT (15:27)
[2018-12-29 15:40] VITALS: BP 135/84; PULSE 92; RESP 18; TEMP 36.7; O2SAT 97
--- NOTE | 2018-12-29 19:39 | PM.PNPO.1 ---
Subjective Date Patient Seen: 12/29/18 Time Patient Seen: 08:42 Interval history: Patient is feeling better today. Not yet passed any gas. no bowel movement. Exam Vital Signs (past 8 hours): - 12/29/18 15:40 Temperature 98.1 F Pulse Rate 92 H Respiratory Rate 18 Blood Pressure 135/84 Pulse Oximetry 97 Oxygen Delivery Method Room Air Oxygen Flow Rate 0 Narrative Exam Narrative: Breathing well. Lungs are clear. Abdomen is soft. Remove the dressing and the wound had a little bit of bleeding but otherwise was intact. no cellulitis. Objective Labs Result Diagrams: 12/28/18 06:00 12/28/18 06:00 Assessment & Plan Post-op Postoperative Procedures Operation Date: 12/27/18 05:45 Actual Procedures Side Surgeon p Exploratory Laparotomy Jemal Francois MD Postoperative status narrative: Doing well. abdomen a little less distended. X-rays which were reviewed last night showed improvement in his small bowel. I will pull his NG today Postoperative plan narrative: Pull NG. Continue NPO. Continue IV fluids. Check labs and x-rays in the morning. Probably will be able start diet since the time I saw him this morning he has had a bowel movement. Quality VTE Deep Vein Thrombosis/Pulmonary Embolism Present on Admission: No
[2018-12-29 21:00] VITALS: BP 153/80; PULSE 70; RESP 16; TEMP 37.1; O2SAT 97
[2018-12-29 23:55] VITALS: BP 158/71; PULSE 67; RESP 16; TEMP 36.9; O2SAT 97
[2018-12-30 06:00] VITALS: BP 162/93; PULSE 98; RESP 16; TEMP 36.3; O2SAT 97
[2018-12-30 06:03] LABS: BUN Creatinine Ratio 22.5 (6-22); Blood Urea Nitrogen 18 mg/dL (9-20); Calcium 8.3 mg/dL (8.4-10.2); Carbon Dioxide 27 mmol/L (22-32); Chloride 109 mmol/L (98-107); Estimated Glomerular Filt Rate > 60.0 mL/min (>60); Glucose 116 mg/dL (80-110); HEMOLYSIS < 15 (0-50); Potassium 4.1 mmol/L (3.4-5.1); Sodium 140 mmol/L (137-145)
[2018-12-30 06:04] LABS: Add Manual Diff / Slide Review NO; Basophils Absolute Auto 0 /uL (0-100); Basophils Percent Auto 0.5 % (0-2); Eosinophils Absolute Auto 200 /uL (0-450); Eosinophils Percent Auto 2.8 % (2-4); Hematocrit 38.1 % (41-53); Hemoglobin 13.1 g/dL (13.5-17.5); Lymphocytes Absolute Auto 1700 /uL (1100-4500); Lymphocytes Percent Auto 23.3 % (25-40); Mean Corpuscular HGB Conc 34.4 % (30-36); Mean Corpuscular Hemoglobin 27.9 PG (26-34); Mean Corpuscular Volume 81.4 fL (80-100); Monocytes Absolute Auto 900 /uL (0-900); Monocytes Percent Auto 12.1 % (3-14); Neutrophils Absolute Auto 4500 /uL (1500-7000); Neutrophils Percent Auto 61.3 % (50-75); Platelet Count 203 X10^3/uL (150-400); Red Blood Cell Count 4.69 X10^6/uL (4.5-5.9); Red Cell Distribution Width 14.1 % (11.6-14.8); White Blood Cell Count 7.3 X10^3/uL (4.5-11.0)
[2018-12-30] MEDS: DEXTROSE 5%-NS W/KCL 20MEQ 1,000 ML 125 MEQ IV ×3 (06:19→20:33)
[2018-12-30 07:45] VITALS: BP 159/80; PULSE 82; RESP 15; TEMP 36.7; O2SAT 96
[2018-12-30 11:35] VITALS: BP 161/76; PULSE 77; RESP 17; TEMP 36.7; O2SAT 98
[2018-12-30] MEDS: ENOXAPARIN 40 MG/0.4 ML SYRINGE SUBCUT (14:14)
[2018-12-30 15:15] VITALS: BP 141/80; PULSE 68; RESP 18; TEMP 37.1; O2SAT 97
--- NOTE | 2018-12-30 15:37 | PM.PNPO.1 ---
Subjective Date Patient Seen: 12/30/18 Time Patient Seen: 15:37 Interval history: Feels better every day. Had a bowel movement today. Passing some flatus still. Exam Vital Signs (past 8 hours): - 12/30/18 07:45 12/30/18 11:35 12/30/18 15:15 Temperature 98.1 F 98.1 F 98.8 F Pulse Rate 82 77 68 Respiratory Rate 15 17 18 Blood Pressure 159/80 H 161/76 H 141/80 H Pulse Oximetry 96 98 97 Oxygen Delivery Method Room Air Oxygen Flow Rate 0 Narrative Exam Narrative: Lungs clear. Abdomen is little distended but soft. wound is intact. no cellulitis. Objective Labs Result Diagrams: 12/30/18 05:33 12/30/18 05:33 Labs: Laboratory Results - last 24 hr 12/30/18 12/30/18 05:33 05:33 WBC 7.3 RBC 4.69 Hgb 13.1 L Hct 38.1 L MCV 81.4 MCH 27.9 MCHC 34.4 RDW 14.1 Plt Count 203 Neut % (Auto) 61.3 Lymph % (Auto) 23.3 L [place] % (Auto) 12.1 Eos % (Auto) 2.8 Baso % (Auto) 0.5 Neut # (Auto) 4500 Lymph # (Auto) 1700 [place] # (Auto) 900 Eos # (Auto) 200 Baso # (Auto) 0 Sodium 140 Potassium 4.1 Chloride 109 H Carbon Dioxide 27 BUN 18 Creatinine 0.80 Estimated GFR > 60.0 BUN/Creatinine Ratio 22.5 H Glucose 116 H Calcium 8.3 L Assessment & Plan Post-op Postoperative Procedures Operation Date: 12/27/18 05:45 Actual Procedures Side Surgeon p Exploratory Laparotomy Jemal Francois MD Postoperative status: doing well Quality VTE Deep Vein Thrombosis/Pulmonary Embolism Present on Admission: No
[2018-12-30 15:58] VITALS: BP 141/80; PULSE 70
[2018-12-30] MEDS: LOSARTAN 50 MG TABLET PO (15:58)
[2018-12-30 19:25] VITALS: BP 146/74; PULSE 70; RESP 16; TEMP 37
[2018-12-30] MEDS: AMLODIPINE 5 MG TABLET PO (20:30)
[2018-12-30] MEDS: ATORVASTATIN 20 MG TABLET 40 MG PO (20:30)
[2018-12-31 00:07] VITALS: BP 140/81; PULSE 66; RESP 18; TEMP 36.7; O2SAT 97
[2018-12-31] MEDS: DEXTROSE 5%-NS W/KCL 20MEQ 1,000 ML 125 MEQ IV (04:56)
[2018-12-31 05:53] VITALS: BP 158/84; PULSE 83; RESP 16; TEMP 36.6; O2SAT 97
[2018-12-31 07:55] VITALS: BP 149/90; PULSE 72; RESP 18; TEMP 36.8; O2SAT 97
[2018-12-31] MEDS: AMLODIPINE 5 MG TABLET PO ×2 (09:56→21:36)
[2018-12-31] MEDS: LOSARTAN 50 MG TABLET PO (09:57)
--- NOTE | 2018-12-31 10:11 | PC.NURSE ---
Addendum entered by Key Kramer R.N. 12/31/18 14:19: PAIN/MS - after shower, pt ret to bed, started simethacone chew and ranitidine, no nausea but does feel some bloating, discussed pain mgt, declines toradol at this time. Addendum entered by Key Kramer R.N. 12/31/18 12:52: ivf saline locked for pt shower. Original Note: AM NOTE - alert, states toradol providing adequate relief abd discomfort, slightly distended, soft, bt present x 4 quadrants, passing flatus, denies nausea, morgan sips clear, discussed mobilization and pt indep in room and ambul hallways regularly, later am up chair.
[2018-12-31 11:35] VITALS: BP 151/81; PULSE 66; RESP 16; TEMP 36.8; O2SAT 98
--- NOTE | 2018-12-31 12:53 | PM.PN.1 ---
Subjective Date Patient Seen: 12/31/18 Time Patient Seen: 12:53 Interval history: Patient is approximately 4 days postop relief of small-bowel obstruction secondary to a vegetable bezoar current he is passing flatus and having small bowel movements. Exam Vital Signs (past 8 hours): - 12/31/18 05:53 12/31/18 07:55 12/31/18 11:35 Temperature 97.8 F 98.2 F 98.2 F Pulse Rate 83 72 66 Respiratory Rate 16 18 16 Blood Pressure 158/84 H 149/90 H 151/81 H Pulse Oximetry 97 97 98 Oxygen Delivery Method Room Air Oxygen Flow Rate 0 Narrative Exam Narrative: Patient is afebrile abdomen is a bit distended normal amount of incisional tenderness no sign of infection Objective Labs Result Diagrams: 12/30/18 05:33 12/30/18 05:33 Assessment & Plan Assessment & Plan narrative: Patient is resolving his ileus. He is passing flatus tolerating clear liquids without nausea vomiting. I have added simethicone to his regimen. He is recovering well. Quality VTE Deep Vein Thrombosis/Pulmonary Embolism Present on Admission: No
[2018-12-31] MEDS: SIMETHICONE 80 MG TABLET PO ×3 (13:46→21:36)
[2018-12-31] MEDS: DEXTROSE 5%-NS W/KCL 20MEQ 1,000 ML 50 MEQ IV (13:47)
[2018-12-31] MEDS: ENOXAPARIN 40 MG/0.4 ML SYRINGE SUBCUT (13:50)
[2018-12-31 15:52] VITALS: BP 121/79; PULSE 71; RESP 16; TEMP 36.9; O2SAT 97
--- NOTE | 2018-12-31 16:22 | CM.DPC ---
DCP: continued: EMR reviewed and case discussed in Team Rounds. Pt is up and independent in room. Per surgeon note today he is recovering well from surgery: 12/27 : exploratory laparotomy: SBO related to vegetable bezoar. Anticipate pt will d/c home once stable. DCP team will continue to follow prn.
[2018-12-31] MEDS: KETOROLAC 30 MG/ML VIAL IV (17:22)
[2018-12-31] MEDS: ATORVASTATIN 20 MG TABLET 40 MG PO (21:36)
[2018-12-31] MEDS: SODIUM CHLORIDE 0.9% FLUSH 10 ML IV (21:38)
[2018-12-31 21:43] VITALS: BP 145/84; PULSE 65; RESP 20; TEMP 36.7; O2SAT 97
[2019-01-01 01:12] VITALS: BP 150/90; PULSE 71; RESP 16; TEMP 36.7; O2SAT 95
[2019-01-01 08:00] VITALS: BP 120/76; PULSE 72; RESP 18; TEMP 36.6; O2SAT 97
--- NOTE | 2019-01-01 09:25 | P.PN_ITS ---
Subjective Date Patient Seen: 01/01/19 Time Patient Seen: 09:23 Interval history: Patient is recovering following exploratory laparotomy for a bowel obstruction secondary to bezoar. Subjectively he feels much better today has had large bowel movement and is passing flatus. He has been tolerating a clear liquid diet with no nausea and vomiting. Exam Vital Signs (past 8 hours): - 01/01/19 08:00 Temperature 97.9 F Pulse Rate 72 Respiratory Rate 18 Blood Pressure 120/76 Pulse Oximetry 97 Oxygen Delivery Method Room Air Oxygen Flow Rate 0 Narrative Exam Narrative: Patient is afebrile has no complaints Abdomen is less distended and is soft today. Incision is healing nicely. Objective Labs Result Diagrams: 12/30/18 05:33 12/30/18 05:33 Assessment & Plan Assessment & Plan narrative: Patient has mormonism of bowel function. I will advance his diet as tolerated. I will stop his intravenous fluids. Quality VTE Deep Vein Thrombosis/Pulmonary Embolism Present on Admission: No
[2019-01-01] MEDS: AMLODIPINE 5 MG TABLET PO ×2 (09:30→20:24)
[2019-01-01] MEDS: LOSARTAN 50 MG TABLET PO (09:30)
[2019-01-01] MEDS: SIMETHICONE 80 MG TABLET PO ×4 (09:31→20:24)
[2019-01-01] MEDS: SODIUM CHLORIDE 0.9% FLUSH 10 ML IV ×2 (09:31→20:28)
--- NOTE | 2019-01-01 10:45 | PC.NURSE ---
AM NOTE - pt is alert, seated in window seat after ambulating hallway, gait steady, minimal abd discomfort and states will req toradol if needed, steristrips intact with old serosang, bruising lower abd, abd appears less distended than evaluated yesterday and has been passing flatus, later am pt had formed bm, no nausea, morgan sips clears and in, ivf dc'd, diet advanced to low residue, hr reg 84, ra 97%.
[2019-01-01 13:00] VITALS: BP 147/78; PULSE 68; RESP 18; TEMP 36.6; O2SAT 97
[2019-01-01] MEDS: ENOXAPARIN 40 MG/0.4 ML SYRINGE SUBCUT (14:01)
[2019-01-01 16:00] VITALS: BP 151/70; PULSE 71; RESP 18; TEMP 36.8; O2SAT 97
[2019-01-01 20:00] VITALS: BP 133/73; PULSE 69; RESP 18; TEMP 36.8; O2SAT 97
[2019-01-01] MEDS: ATORVASTATIN 20 MG TABLET 40 MG PO (20:24)
[2019-01-02 00:34] VITALS: BP 125/61; PULSE 68; RESP 16; TEMP 36.8; O2SAT 98
--- NOTE | 2019-01-02 00:56 | PC.NURSE ---
2300- Pt POD#5 exploratory lap w/ steri strips in place covering sites. Ecchymosis noted across lap region, pt states this area is tender when he turns in bed. Moving independently in room, saline locked, VSS. Regular diet ordered to start 01/02
[2019-01-02 05:23] VITALS: BP 150/71; PULSE 61; RESP 16; TEMP 36.5; O2SAT 98
[2019-01-02] MEDS: AMLODIPINE 5 MG TABLET PO ×2 (09:14→20:57)
[2019-01-02] MEDS: SIMETHICONE 80 MG TABLET PO ×4 (09:14→20:58)
[2019-01-02] MEDS: LOSARTAN 50 MG TABLET PO (09:15)
[2019-01-02] MEDS: SODIUM CHLORIDE 0.9% FLUSH 10 ML IV ×2 (09:16→20:58)
--- NOTE | 2019-01-02 10:11 | PM.PN.1 ---
Subjective Date Patient Seen: 01/02/19 Time Patient Seen: 10:12 Interval history: Patient's several days post exploratory laparotomy for bezoar obstruction. He is fairly comfortable is not using narcotics he is ambulating well he is passing some gas is not having significant bowel movements however Exam Vital Signs (past 8 hours): - 01/02/19 05:23 Temperature 97.7 F Pulse Rate 61 Respiratory Rate 16 Blood Pressure 150/71 H Pulse Oximetry 98 Oxygen Delivery Method Room Air Oxygen Flow Rate 0 Narrative Exam Narrative: Patient is afebrile alert and oriented. Abdomen mildly distended normal bowel sounds. Incision is healing perfectly without infection. Objective Labs Result Diagrams: 12/30/18 05:33 12/30/18 05:33 Assessment & Plan Assessment & Plan narrative: Patient has a resolving ileus at this time. He is passing flatus but only having very slight bowel movements. I will use a variety of stimulants to try to re-establish his GI function so that he may go home soon. Quality VTE Deep Vein Thrombosis/Pulmonary Embolism Present on Admission: No
[2019-01-02] MEDS: DOCUSATE 100 MG CAPSULE 200 MG PO (11:10)
[2019-01-02] MEDS: POLYETHYLENE GLYCOL 3350 17 GM POWD.PACK PO (11:11)
--- NOTE | 2019-01-02 13:11 | PC.NURSE ---
AM NOTE - pt is alert, indep in room voiding, states abd feels less distended, passing flatus, has morgan gen diet this am, no nausea, declines pain medication, trace pedal edema, hr 84, ra 96%, no bm overnight, later did have medium brown, loosely formed stools.
[2019-01-02] MEDS: ENOXAPARIN 40 MG/0.4 ML SYRINGE SUBCUT (13:23)
[2019-01-02 17:13] VITALS: BP 151/75; PULSE 64; RESP 20; TEMP 36.6; O2SAT 99
[2019-01-02] MEDS: ATORVASTATIN 20 MG TABLET 40 MG PO (20:57)
[2019-01-02 21:00] VITALS: BP 153/70; PULSE 63; RESP 18; TEMP 36.5; O2SAT 98
[2019-01-02 23:25] VITALS: BP 136/69; PULSE 61; RESP 18; TEMP 37.2; O2SAT 98
[2019-01-03 05:00] VITALS: BP 134/78; PULSE 61; RESP 18; TEMP 37.2; O2SAT 96
[2019-01-03 08:00] VITALS: BP 143/74; PULSE 74; RESP 18; TEMP 36.3; O2SAT 98
[2019-01-03] MEDS: AMLODIPINE 5 MG TABLET PO (08:46)
[2019-01-03] MEDS: DOCUSATE 100 MG CAPSULE 200 MG PO (08:46)
[2019-01-03] MEDS: LOSARTAN 50 MG TABLET PO (08:47)
[2019-01-03] MEDS: POLYETHYLENE GLYCOL 3350 17 GM POWD.PACK PO (08:51)
[2019-01-03] MEDS: SIMETHICONE 80 MG TABLET PO (08:53)
--- NOTE | 2019-01-03 11:25 | PC.NURSE ---
Day shift: Pt left unit at approx 1115. Paperwork signed and all questions answered. Pt has screlba and all personal belongings. Pt ambulated to private car with this scenario writer. That car driven by Pt's spouse. He was in good spirits and happy to be going home.
--- NOTE | 2019-01-03 15:14 | P.DS_ITS ---
History of Present Illness Date Patient Seen: 01/03/19 Time Patient Seen: 08:20 Chief complaint: ABDOMINAL PAIN 6 HOURS Narrative: Feeling well having bowel movements for a for discharge Discharge Providers Date of admission: 12/27/18 05:33 Discharge Date: 01/03/19 Primary care physician: Johnna Diaz DO Consults: 12/27/18 09:21 Consult to Discharge Planning Routine Comment: Discharge provider: Anibal Lund Summary Discharge Diagnosis: Small-bowel obstruction Intestinal bezoar Hospital Course: A 68-year-old man without history of prior abdominal surgery presented to the emergency department with obstipation and CT scan showing transition point with dilated proximal loops consistent with small-bowel obstruction. he was taken to the operating room where the transition point was readily identified. it appeared to be minimally smaller in caliber and contained what by palpation appeared to be a phytobezor. This was milked without bowel resection through the ileocecal valve with resolution of the small-bowel obstruction. patient did well postoperatively recovering bowel function. By postoperative day 7 he was tolerating regular diet ambulating without ease pain was easily controlled on oral medication, he was voiding and having bowel movements without difficulty. Status at Discharge Cognitive/behavioral status at discharge: oriented Functional status at discharge: independent ambulation Overall status at discharge: patient is back to baseline Exam Vital Signs (past 8 hours): - 01/03/19 08:00 Temperature 97.3 F L Pulse Rate 74 Respiratory Rate 18 Blood Pressure 143/74 H Pulse Oximetry 98 Oxygen Delivery Method Room Air Oxygen Flow Rate 0 Narrative Exam Narrative: Well-appearing Regular rate and rhythm His breathing comfortably on room air Abdomen is soft nontender nondistended, wound is clean dry and intact Periphery warm well perfused Objective Labs Result Diagrams: 12/30/18 05:33 12/30/18 05:33 Discharge Plan Discharge Plan Patient Disposition: Home Discharge comment: home, remove IV, follow-up in clinic in 1-2 weeks Discharge Med Rec/Prescriptions Prescriptions: New oxycodone 5 mg tablet 5 mg PO Q4-6H PRN (Reason: pain) Qty: 7 RF: 0 polyethylene glycol 3350 [Miralax] 17 gram/dose powder 17 gram PO DAILY Qty: 255 RF: 0 Continued losartan 50 mg tablet 50 mg PO DAILY RF: 0 amlodipine 5 mg tablet 5 mg PO BID RF: 0 sildenafil [Viagra] 50 mg tablet 50 mg PO DAILY PRN (Reason: sexual activity) Qty: 6 RF: 0 atorvastatin 40 mg tablet 40 mg PO BEDTIME RF: 0 Follow up/Referrals: Johnna Diaz DO [Primary Care Provider] - Anibal Lund MD [Physician] - 2 Weeks (Follow up with Dr Francois in 1- 2 weeks-01/19 10:15 check in for a 10:[address] francois [phone] ) Provider Discharge Instructions Diet: Diet as Tolerated Diet comment: chew well all fiberous foods Activity: No lifting over 15lbs for 6 weeks after surgery No immersions in water for 2 weeks after surgery OK to shower Skin/Wound/Dressing Care Report to your healthcare provider any signs of infection, such as:: chills, fever and increased pain Dressing: keep wounds open to air. paper strips will fall off in about 1 week Visit Report/Discharge Packet Instructions: DI for Mechanical Bowel Obstruction, DI for Small Bowel Obstruction, Polyethylene Glycol 3350, Oxycodone Stand Alone Forms: Surgery Discharge Discharge Data Primary Care Provider: Johnna Diaz Attending Provider: Jemal Francois Admit Date/Time: 12/27/18 05:33 Discharges patient from system. Discharge Date/Time: 01/03/19 11:38 Quality VTE Deep Vein Thrombosis/Pulmonary Embolism Present on Admission: No
== END 2019-01-03 11:38 | disposition home or self-care (01) | DRG 345 ==
LOC: ED 12-27 04:55 → AC 12-27 05:35
PROVIDERS: Admitting Provider Specialist; Emergency Provider Emergency Medicine; PCP Family Medicine; Visit Provider Specialist
PROC: 0DC80ZZ Extirpation of Matter from Small Intestine, Open Approach (ICD-10-PCS; CPT 49000; principal; 2018-12-27 05:45)
DX: T18.3XXA Foreign body in small intestine, initial encounter (principal); K56.7 Ileus, unspecified; I10 Essential (primary) hypertension; Y33.XXXA Other specified events, undetermined intent, initial encounter
CPT/HCPCS: 36415; 36591; 49000; 74019; 74022; 74177; 80048; 80053; 81003; 83690; 85025; 96361; 96374; 99222; 99283; 99285; J1100; J1170; J1650; J1885; J2405; J2704; J3010; Q9967

== ENCOUNTER 2019-04-28 07:37 | Day surgery (SDC) | payer MEDICARE, SELFPAY ==
[2018-12-27 10:35] VITALS: BMI 28.0
[2019-04-28] VITALS (8 sets, daily range): BP systolic 87–134; BP diastolic 48–65; PULSE 57–98; RESP 8–19; TEMP 36.2–36.5; O2SAT 89–99; BMI 26.8
--- NOTE | 2019-04-28 | PATH_ITS ---
[facility] Accession Number: [id number] . 01 Material submitted: . colon - POLYP AT 15 . 01 Clinical history: . ENCOUNTER FOR SCREENING FOR MALIGNANT NEOPLASM . 02 Diagnosis: Colon at 15 cm, Polyp: Hyperplastic polyp. MRV/04/29/2019 . 02 Electronically signed: . Vicente Mccarty MD, PhD, Pathologist NPI- [id number] . 01 Gross description: . POLYP AT 15: Received in formalin are 3 fragment(s) of kirby, soft tissue measuring 0.1 x 0.1 x 0.1 cm to 0.3 x 0.2 x 0.2 cm which is entirely submitted and submitted entirely in 1 cassette(s) /DMC /DMC . 02 Pathologist provided ICD-10: K63.5 . 02 CPT . 657018 Performed at: 01 [facility] [address], [place], [place] [id number] MD Rangel Yu MD Phone: [phone] Performed at: 02 [facility] [address] [place], [place] [id number] MD Karen Calix MD Phone: [phone]
[2019-04-28] MEDS: SODIUM CHLORIDE 0.9% 1,000 ML 200 ML IV (08:43)
--- NOTE | 2019-04-28 08:51 | PM.HP.1 ---
History of Present Illness History of Present Illness Date Patient Seen: 04/28/19 Time Patient Seen: 08:48 Chief complaint: [id number] Narrative: The patient is a gentleman here for his 1st colonoscopy for screening purposes. He is 69 years of age. No family history of colon cancer. Patient History Medical History Headache (Chronic ~2016) High cholesterol (Chronic) Hypertension (Chronic ~2014) Measles (Resolved ~1954) Peripheral neuropathy (Chronic ~2015) Surgical History Anesthesia (Resolved) Fractures (Resolved) Status post exploratory laparotomy (Acute) [place] teeth removed (Resolved ~1975) Family History Father Hyperlipidemia Mother Glaucoma Brother Brain aneurysm Brother Nerve damage Sister Hypertension Social History household members: spouse Smoking Status: Never smoker alcohol intake: current Family & Social History Family History Father Hyperlipidemia Mother Glaucoma Brother Brain aneurysm Brother Nerve damage Sister Hypertension Social History: household members spouse Tobacco & Substance use: Smoking Status Never smoker alcohol intake current alcohol intake frequency 0-2 drinks per day Substance Use Type does not use Meds Home Medications and Allergies Home Medications Medication Instructions Recorded Confirmed Type amlodipine 5 mg tablet 5 mg PO BID tab 09/08/18 04/28/19 History losartan 50 mg tablet 50 mg PO DAILY 09/08/18 04/28/19 History atorvastatin 40 mg tablet 40 mg PO BEDTIME #30 tab 04/18/19 04/28/19 Rx Allergies Allergy/AdvReac Type Severity Reaction Status Date / Time No Known Drug Allergies Allergy Verified 12/22/18 11:17 Review of Systems Review of Systems ROS Unobtainable: All systems reviewed & are unremarkable except as noted in HPI and below Exam Vital Signs (past 8 hours): - 04/28/19 08:15 Temperature 97.5 F L Pulse Rate 60 Respiratory Rate 14 Blood Pressure 134/65 Pulse Oximetry 99 Oxygen Delivery Method Room Air Narrative Exam Narrative: Pleasant cooperative patient no apparent distress. Lungs are clear to auscultation. No rales or rhonchi. Heart regular rate and rhythm no murmur gallop. Abdomen is soft nontender without mass. No obvious hernias. Patient is alert and oriented x3. Assessment & Plan Assessment & Plan narrative: The patient for a screening colonoscopy. I have discussed the procedure with them. Risks of bleeding, perforation which would necessitate major operation, failure to find remove all lesions, the potential tattoo were all discussed. All questions were answered. They wished to proceed.
--- NOTE | 2019-04-28 08:53 | PM.PREOP ---
Pre-operative Note Interval Note History & Physical reviewed/Exam performed by Physician: Yes Changes to H&P: No ASA Class (for procedural sedation): II
[2019-04-28] MEDS: GLUCAGON,HUMAN RECOMBINANT 1 MG/ML VIAL IV (09:47)
[2019-04-28] MEDS: MIDAZOLAM 5 MG/5 ML VIAL IV (09:48)
[2019-04-28] MEDS: fentaNYL 250 MCG/5 ML INJ IV (09:48)
--- NOTE | 2019-04-28 09:48 | PM.OP.ENDO ---
Operative Date/Time/Diagnoses Date of procedure: 04/28/19 Time of procedure: 09:48 Pre-op diagnosis: Screening exam. This is his 1st colonoscopy Post-op diagnosis: same (Scattered diverticulosis. Small polyp at 15 cm from the anal verge.) Procedure & Clinicians Study performed: Colonoscopy with cold biopsy Same procedure as scheduled: Yes Indications: Screening due to age Surgeon: Jemal Francois Procedure Notes SCOAP/Timeout: Performed Procedure in detail: The patient was placed in the left lateral decubitus position and underwent IV sedation directed by the surgeon consisting of fentanyl and Versed. Digital exam was unremarkable. His prostate is normal in size.. The scope was inserted and advanced through the rectum into the sigmoid, descending, transverse, and ascending colon. His colon was somewhat tortuous.. The cecum was reached identified by the ileocecal valve and the appendiceal opening. The scope was gradually brought out. A small Polyp which was seen on the way in was biopsied and removed on the way out. It was located at 15 cm from the anal verge. The scope had been retroflexed in the rectum prior to removal of polyp which was quite difficult to find and required careful seeking.. The appearance on retroflexed view was normal. The scope was removed and the patient tolerated the procedure well Scope withdrawal time: 18 minutes Sedation minutes: 51 Findings: diverticulosis (Scattered throughout the colon but mainly in the sigmoid) and polyp (One small polyp at 15 cm from the anal verge) Specimen(s): other (Polyp) Complications: none Post-procedure Recommendations: Colonscopy in 5 years Follow up: as needed Disposition: PACU
== END 2019-04-28 11:07 | disposition home or self-care (01) ==
PROVIDERS: PCP Family Medicine; Visit Provider Specialist
PROC: 0DJD8ZZ Inspection of Lower Intestinal Tract, Via Natural or Artificial Opening Endoscopic (ICD-10-PCS; CPT 45378; principal; 2019-04-28 08:45)
DX: Z12.11 Encounter for screening for malignant neoplasm of colon (principal); K57.30 Diverticulosis of large intestine without perforation or abscess without bleeding; K63.5 Polyp of colon; E78.00 Pure hypercholesterolemia, unspecified; I10 Essential (primary) hypertension; G62.9 Polyneuropathy, unspecified
CPT/HCPCS: 45380; 99152; 99153; J1610; J2250; J3010

== ENCOUNTER → 2020-06-01 06:57 | Outpatient (CLI) | payer OTHER, SELFPAY ==
[2018-12-27 10:35] VITALS: BMI 28.0
[2020-06-01 08:48] LABS: Add Manual Diff / Slide Review NO; Basophils Absolute Auto 0 /uL (0-100); Basophils Percent Auto 0.7 % (0-2); Eosinophils Absolute Auto 200 /uL (0-450); Eosinophils Percent Auto 2.9 % (2-4); Hematocrit 38.1 % (41-53); Hemoglobin 13.3 g/dL (13.5-17.5); Lymphocytes Absolute Auto 1800 /uL (1100-4500); Lymphocytes Percent Auto 34.3 % (25-40); Mean Corpuscular Hemoglobin 27.9 PG (26-34); Mean Corpuscular Volume 79.6 fL (80-100); Monocytes Absolute Auto 500 /uL (0-900); Monocytes Percent Auto 10.2 % (3-14); Neutrophils Absolute Auto 2700 /uL (1500-7000); Neutrophils Percent Auto 51.9 % (50-75); Platelet Count 233 X10^3/uL (150-400); Red Blood Cell Count 4.79 X10^6/uL (4.5-5.9); Red Cell Distribution Width 13.7 % (11.6-14.8); White Blood Cell Count 5.2 X10^3/uL (4.5-11.0)
[2020-06-01 08:54] LABS: Hemoglobin A1C% w Est Avg Glu 5.4 % (4.0-6.0)
[2020-06-01 09:35] LABS: Alanine Aminotransferase 45 IU/L (<50); Albumin 4.1 g/dL (3.5-5.0); Albumin Globulin Ratio 1.6 (1.0-2.8); Alkaline Phosphatase 81 U/L (38-126); Aspartate Aminotransferase 40 IU/L (17-59); BUN Creatinine Ratio 20.2 (6-22); Bilirubin Total 2.4 mg/dL (0.2-1.3); Blood Urea Nitrogen 19 mg/dL (9-20); Calcium 9.2 mg/dL (8.4-10.2); Carbon Dioxide 32 mmol/L (22-32); Chloride 103 mmol/L (98-107); Cholesterol 129 mg/dL (140-199); Estimated Glomerular Filt Rate > 60.0 mL/min (>60); Globulin 2.6 g/dL (1.7-4.1); Glucose 87 mg/dL (80-110); HDL Cholesterol 53 mg/dL (40-60); HEMOLYSIS < 15 (0-50); LDL Cholesterol Calculated 65 mg/dL (<100); Potassium 4.4 mmol/L (3.4-5.1); Sodium 139 mmol/L (137-145); Total Protein 6.7 g/dL (6.3-8.2); Triglycerides 57 mg/dL (35-150)
[2020-06-01 10:01] LABS: Prostate Specific Antigen Scrn 3.78 ng/mL (0.1-4.0)
[2020-06-01 10:20] LABS: Vitamin B12 671 pg/mL (239-931)
[2020-06-01 11:41] LABS: HEMOLYSIS < 15 (0-50); Iron 125 ug/dL (49-181)
[2020-06-01 11:52] LABS: Percent Iron Saturation 39 % (20-50); Total Iron Binding Capacity 318 ug/dL (261-462); Transferrin 235 mg/dL (206-381)
[2020-06-01 23:08] LABS: Ferritin 43 ng/mL (18-464)
[2020-06-01 23:39] LABS: Folate > 20.0 ng/mL (2.76-20.0)
== END ==
PROVIDERS: PCP Nurse Practitioner Family; Referring Provider Nurse Practitioner Family; Visit Provider Nurse Practitioner Family
DX: G62.9 Polyneuropathy, unspecified (principal); I10 Essential (primary) hypertension; R73.01 Impaired fasting glucose; E78.2 Mixed hyperlipidemia; N40.0 Benign prostatic hyperplasia without lower urinary tract symptoms; R97.20 Elevated prostate specific antigen [PSA]
CPT/HCPCS: 36415; 80053; 80061; 82607; 82728; 82746; 83036; 83540; 83550; 85025; G0103

== ENCOUNTER → 2020-06-05 10:28 | Outpatient (CLI) | payer OTHER, SELFPAY ==
[2018-12-27 10:35] VITALS: BMI 28.0
[2020-06-05 11:59] LABS: Alanine Aminotransferase 42 IU/L (<50); Albumin 4.1 g/dL (3.5-5.0); Albumin Globulin Ratio 1.6 (1.0-2.8); Alkaline Phosphatase 86 U/L (38-126); Aspartate Aminotransferase 40 IU/L (17-59); Bilirubin Total 2.3 mg/dL (0.2-1.3); Bilirubin Unconjugated 2.1 mg/dL (0.0-1.1); Globulin 2.6 g/dL (1.7-4.1); HEMOLYSIS < 15 (0-50); Total Protein 6.7 g/dL (6.3-8.2)
== END ==
PROVIDERS: PCP Nurse Practitioner Family; Visit Provider Nurse Practitioner Family
DX: R17 Unspecified jaundice (principal)
CPT/HCPCS: 80076

== ENCOUNTER → 2020-06-05 10:33 | Outpatient (CLI) | payer OTHER, SELFPAY ==
[2018-12-27 10:35] VITALS: BMI 28.0
--- NOTE | 2020-06-05 10:35 | DI.RAD.S_ITS ---
PROCEDURE: XR LUMBAR SPINE 2-3V INDICATIONS: numbness legs bilaterally TECHNIQUE: 2 views of the lumbar spine were acquired. COMPARISON: None. FINDINGS: Bones: 5 [id number] vertebrae are present. There is mild grade 1 anterolisthesis of L4 on L5. Mild multilevel disc space narrowing and endplate osteophyte formation. Facet hypertrophy throughout the mid and lower lumbar spine. No vertebral body compression fractures. No suspicious bony lesions. Soft tissues: Overlying bowel gas pattern is normal. No suspicious soft tissue calcifications. IMPRESSION: Multilevel degenerative disc and facet disease. No acute fracture. No osseous lesion. If symptoms and/or clinical suspicion for pathology persist, further assessment with repeat, or advanced imaging (e.g., CT, MRI, or bone scan) may be helpful for further assessment. Dictated by: Dennise Broderick M.D. on 06/05/2020 at 16:54 Approved by: Dennise rBoderick M.D. on 06/05/2020 at 16:55
== END ==
PROVIDERS: PCP Nurse Practitioner Family; Referring Provider Nurse Practitioner Family; Visit Provider Nurse Practitioner Family
DX: G62.9 Polyneuropathy, unspecified (principal); R20.0 Anesthesia of skin; M51.36 Other intervertebral disc degeneration, lumbar region; R17 Unspecified jaundice
CPT/HCPCS: 72100; 80076

== ENCOUNTER → 2020-06-12 07:16 | Outpatient (CLI) | payer OTHER, SELFPAY ==
[2018-12-27 10:35] VITALS: BMI 28.0
--- NOTE | 2020-06-12 07:19 | DI.US.S_ITS ---
PROCEDURE: US ABDOMEN COMPLETE INDICATIONS: elevated unconjugated bili TECHNIQUE: Real-time scanning was performed of the abdominal and retroperitoneal organs, with image documentation. COMPARISON: None. FINDINGS: Liver: Liver is mildly enlarged measuring 16.1 cm. Gallbladder: Gallbladder demonstrates no stones. Wall thickness is within normal limits measuring 1.2 mm. Biliary ducts: Intrahepatic bile ducts are non-dilated. Extrahepatic bile duct caliber measures 5.8 mm. Normal is 6-7 mm or less in diameter, or 10 mm or less post-cholecystectomy. Pancreas: Not visualized. Spleen: Spleen is normal in size and homogeneous in echotexture. Kidneys: Kidneys are normal in size and echotexture. Right kidney measures 12.0 cm long; left kidney measures 13.0 cm long. No hydronephrosis. There is a 6 mm nonobstructing calcification within the right kidney. No solid masses. Aorta: Visualized aorta is normal in caliber at less than 3 cm. Iliacs: Proximal common iliac arteries are normal in caliber at less than 2.5 cm. IVC: Intrahepatic inferior vena cava is patent. Miscellaneous: No free abdominal fluid. IMPRESSION: 1. Nonobstructing right renal calculus. 2. Mildly prominent liver. Dictated by: Dang Moncada M.D. on 06/12/2020 at 11:26 Approved by: Dang Moncada M.D. on 06/12/2020 at 11:28
[2020-06-12 09:45] LABS: TSH w/ Reflex to FT4 2.97 uIU/mL (0.47-4.68)
[2020-06-13 15:09] LABS: Albumin 4.2 g/dL (2.9-4.4); Alpha-1-Globulin 0.1 g/dL (0.0-0.4); Alpha-2-Globulin 0.4 g/dL (0.4-1.0); Gamma Globulin 0.8 g/dL (0.4-1.8); Globulin Total 2.1 g/dL (2.2-3.9); Protein, Total 6.3 g/dL (6.0-8.5)
== END ==
PROVIDERS: PCP Nurse Practitioner Family; Referring Provider Nurse Practitioner Family; Visit Provider Nurse Practitioner Family
DX: R17 Unspecified jaundice (principal); G62.9 Polyneuropathy, unspecified; N20.0 Calculus of kidney
CPT/HCPCS: 36415; 76700; 84155; 84165; 84443

== ENCOUNTER → 2021-01-18 07:20 | Outpatient (CLI) | payer OTHER, SELFPAY ==
[2018-12-27 10:35] VITALS: BMI 28.0
[2021-01-18 07:57] LABS: Hematocrit 40.5 % (41-53); Hemoglobin 14.2 g/dL (13.5-17.5); Platelet Count 244 X10^3/uL (150-400); Red Blood Cell Count 5.06 X10^6/uL (4.5-5.9); Red Cell Distribution Width 13.5 % (11.6-14.8); White Blood Cell Count 5.6 X10^3/uL (4.5-11.0)
[2021-01-18 08:06] LABS: Alanine Aminotransferase 39 IU/L (<50); Albumin 4.2 g/dL (3.5-5.0); Albumin Globulin Ratio 1.4 (1.0-2.8); Alkaline Phosphatase 110 U/L (38-126); Aspartate Aminotransferase 39 IU/L (17-59); BUN Creatinine Ratio 15.1 (6-22); Bilirubin Total 1.6 mg/dL (0.2-1.3); Blood Urea Nitrogen 13 mg/dL (9-20); Calcium 9.6 mg/dL (8.4-10.2); Carbon Dioxide 30 mmol/L (22-32); Chloride 103 mmol/L (98-107); Cholesterol 251 mg/dL (140-199); Estimated Glomerular Filt Rate > 60.0 mL/min (>60); Globulin 3.1 g/dL (1.7-4.1); Glucose 93 mg/dL (80-110); HDL Cholesterol 47 mg/dL (40-60); HEMOLYSIS < 15 (0-50); LDL Cholesterol Calculated 183 mg/dL (<100); Potassium 4.2 mmol/L (3.4-5.1); Sodium 138 mmol/L (137-145); Total Protein 7.3 g/dL (6.3-8.2); Triglycerides 104 mg/dL (35-150)
[2021-01-18 08:37] LABS: Prostate Specific Antigen Scrn 8.55 ng/mL (0.1-4.0)
== END ==
PROVIDERS: PCP Nurse Practitioner Family; Referring Provider Nurse Practitioner Family; Visit Provider Nurse Practitioner Family
DX: E78.2 Mixed hyperlipidemia (principal); I10 Essential (primary) hypertension; N40.0 Benign prostatic hyperplasia without lower urinary tract symptoms
CPT/HCPCS: 36415; 80053; 80061; 85027; G0103

== ENCOUNTER → 2021-10-05 07:50 | Outpatient (CLI) | payer OTHER, SELFPAY ==
[2021-02-05 11:19] VITALS: BMI 28.0
[2021-10-05 09:56] LABS: Hemoglobin 13.6 g/dL (13.5-17.5); Mean Corpuscular Hemoglobin 27.9 PG (26-34); Mean Corpuscular Volume 79.6 fL (80-100); Platelet Count 240 X10^3/uL (150-400); Red Cell Distribution Width 13.6 % (11.6-14.8); White Blood Cell Count 5.7 X10^3/uL (4.5-11.0)
[2021-10-05 10:25] LABS: Alanine Aminotransferase 55 IU/L (<50); Albumin 4.4 g/dL (3.5-5.0); Albumin Globulin Ratio 1.6 (1.0-2.8); Alkaline Phosphatase 81 U/L (38-126); Aspartate Aminotransferase 40 IU/L (17-59); BUN Creatinine Ratio 19.8 (6-22); Bilirubin Total 1.6 mg/dL (0.2-1.3); Blood Urea Nitrogen 19 mg/dL (9-20); Calcium 9.7 mg/dL (8.4-10.2); Carbon Dioxide 35 mmol/L (22-32); Chloride 102 mmol/L (98-107); Cholesterol 155 mg/dL (140-199); Estimated Glomerular Filt Rate > 60.0 mL/min (>60); Globulin 2.7 g/dL (1.7-4.1); Glucose 96 mg/dL (80-110); HDL Cholesterol 46 mg/dL (40-60); HEMOLYSIS < 15 (0-50); LDL Cholesterol Calculated 91 mg/dL (<100); Potassium 4.1 mmol/L (3.4-5.1); Sodium 140 mmol/L (137-145); Total Protein 7.1 g/dL (6.3-8.2); Triglycerides 88 mg/dL (35-150)
[2021-10-05 10:55] LABS: Prostate Specific Antigen Scrn 5.64 ng/mL (0.1-4.0)
== END ==
PROVIDERS: PCP Nurse Practitioner Family; Referring Provider Nurse Practitioner Family; Visit Provider Nurse Practitioner Family
DX: E78.2 Mixed hyperlipidemia (principal); Z12.5 Encounter for screening for malignant neoplasm of prostate; I10 Essential (primary) hypertension
CPT/HCPCS: 36415; 80053; 80061; 85027; G0103

== ENCOUNTER → 2021-11-28 09:00 | Outpatient (CLI) | payer OTHER, SELFPAY ==
[2021-02-05 11:19] VITALS: BMI 28.0
--- NOTE | 2021-11-28 09:01 | DI.US.S_ITS ---
PROCEDURE: US ABD AORTA ANEURYSM SCREEN INDICATIONS: SCREEN TECHNIQUE: Real time scanning was performed of the aorta and iliac arteries, with image documentation. COMPARISON: None. FINDINGS: Aorta: Proximal aortic diameter measures 2.7 cm. Mid-aorta measures 2.1 cm. Distal aortic diameter is 1.8 cm. Iliac arteries: Right common iliac artery measures 1.3 cm. Left common iliac artery measures 1.3 cm. IMPRESSION: No evidence of aneurysmal dilatation. Consider 5 year follow-up as clinically warranted. Dictated by: Clifford Guillen M.D. on 11/28/2021 at 9:56 Approved by: Clifford Guillen M.D. on 11/28/2021 at 9:57
== END ==
PROVIDERS: Family Provider Nurse Practitioner Family; PCP Nurse Practitioner Family; Referring Provider Nurse Practitioner Family; Visit Provider Nurse Practitioner Family
DX: Z13.6 Encounter for screening for cardiovascular disorders (principal)
CPT/HCPCS: 76706

== ENCOUNTER 2021-11-28 15:15 | Outpatient (RCR) | payer OTHER, SELFPAY ==
[2021-02-05 11:19] VITALS: BMI 28.0
--- NOTE | 2021-10-23 12:00 | PT.OIE ---
Current Diagnoses Abnormal posture (10/23/21) Strain of unspecified muscle, fascia and tendon at shoulder and upper arm level, left arm, initial encounter (10/23/21) Past Medical History (Last Updated 09/26/21 @ 17:35 by SWETHA Ornelas) BPH (benign prostatic hyperplasia) Chest wall pain Decreased libido without sexual dysfunction Elevated bilirubin Elevated fasting glucose Elevated PSA, less than 10 ng/ml (12/2020) Essential hypertension (2011) Headache (~2016) High cholesterol High prostate specific antigen (PSA) Hypertension (~2014) Left shoulder strain Measles (~1954) Mixed hyperlipidemia Neuropathy Onychomycosis Peripheral neuropathy (~2015) Seborrheic keratosis Status post exploratory laparotomy Past Surgical History (Last Reviewed 04/28/19 @ 08:53 by Jemal Francois MD) Anesthesia Fractures Status post exploratory laparotomy [place] teeth removed (~1975) Visit Care Team Role Provider Type SWETHA Ornelas Attending Provider [employer] Family Provider Primary Care Provider Referring Provider Specialty: Family Practice Address: [address] [place] [address] Email: [email or web address] Physical Therapy Initial Evaluation PT-OP-A Visit Information Start: 10/20/21 15:30 Freq: Status: Active Protocol: Document 10/23/21 11:15 AW (Rec: 10/20/21 15:41 AW [id number]) Out-Patient Physical Therapy Visit Information Visit Information Visit Type Initial Evaluation Visit Start Time 10:30 Visit Stop Time 11:15 Total Visit Minutes 45 Visit Number 09/07 Evaluation Information Evaluation Date 10/23/21 PT-OP-B Current Condition Start: 10/20/21 15:30 Freq: Status: Active Protocol: Document 10/23/21 11:15 AW (Rec: 10/20/21 15:41 AW [id number]) Current Condition History of Current Condition Onset Date 4 months Current Complaints left shoulder pain History of Current Condition Jm was walking down carpeted stairs at home in stocking feet 4 months ago. He was taking stairs two at a time. His left foot slipped and he tried to stabilize with his left arm which got stuck behind him. He immediately had pain in his anterior shoulder . He reports he may have hurt his shoulder a few years ago. He was nursing it but it was functional until his recent fall. He played softball 30 years (outfield, first base, and pitcher). His shoulder is feeling ok but tires easily and he is hyperaware of it. He denies paresthesias. Rest and activity modification help. Sleeping on his side makes it worse. Lifting with arm extended makes it worse. He is left-hand dominant and has had trauma to his right forearm which left it with reduced muscle bulk. Prior Treatments and Tests No imaging Treatment Goals Patient/Caregiver Goals Throw a softball. Skip a rock. PT-OP-C Subjective Start: 10/20/21 15:30 Freq: Status: Active Protocol: Document 10/23/21 11:15 AW (Rec: 10/23/21 17:48 AW [id number]) OP-PT Subjective Patient Comments Patient Comments I'd like to be able to throw a ball again. Patient Questionnaires Quick Dash- Upper Extremity Quick Dash UE Score 18 Quick Dash UE Impairment 1 to 19% Impaired (Score 1-19) OP-PT Pain Assessment Pain Assessment Grid Paper Pain Assessment Grid Completed No PT-OP-F Manual Assessment Start: 10/20/21 15:30 Freq: Status: Active Protocol: Document 10/23/21 11:15 AW (Rec: 10/24/21 08:47 AW [id number]) Manual Assessments Soft Tissue Assessment Soft Tissue Mobility Assessment Dense upper traps bilaterally (left more affected than right ). Increased density of left pec major and minor. TTP at left supraspinatus, infraspinatus. Joint Mobility Assessment Joint Mobility Assessment Left GH inferior glide restriction compared with right. PT-OP-H Neuro Start: 10/20/21 15:30 Freq: Status: Active Protocol: Document 10/23/21 11:15 AW (Rec: 10/24/21 08:47 AW [id number]) Sensation Evaluation Gross Sensation Gross Sensation WNL Deep Tendon Reflex & Clonus Assessment Deep Tendon Reflex Bilateral Bicep Deep Tendon Reflex 2+ Normal PT-OP-J Posture/Palpation/Skin Start: 10/20/21 15:30 Freq: Status: Active Protocol: Document 10/23/21 11:15 AW (Rec: 10/24/21 08:47 AW [id number]) Posture Evaluation Comments Posture Comments Forward head posture. Humeral head sits anteriorly on both sides. Scapulae sit >4 finger widths from spinous processes. PT-OP-K Range of Motion Start: 10/20/21 15:30 Freq: Status: Active Protocol: Document 10/23/21 11:15 AW (Rec: 10/24/21 08:56 AW [id number]) Cervical Spine Range of Motion Cervical Spine Active Comments WNL without pain reproduction Shoulder Goniometric Range of Motion Shoulder left Shoulder ROM WFL Yes Testing Position Sitting Flexion 165 Abduction 170 External Rotation at 0 degrees Abduction 65 Internal Rotation Behind Back (text) T12 right Shoulder ROM WFL Yes Testing Position Sitting Flexion 175 Abduction 175 External Rotation at 0 degrees Abduction 65 Internal Rotation Behind Back (text) T6 Shoulder ROM Limitations Shoulder ROM Limitations Pain Elbow/Forearm Range of Motion Elbow/Forearm bilat Comments WNL PT-OP-L Special Tests Start: 10/20/21 15:30 Freq: Status: Active Protocol: Document 10/23/21 11:15 AW (Rec: 10/24/21 08:56 AW [id number]) Special Tests Cervical Spine Special Tests Spurling's Test Test Results negative bilaterally Shoulder Special Tests ER MMT Test Results positive left Painful Arc Test Results negative Comments Pain reported at 135 degrees abduction. Test is sensitive for pain in 60-120 degree range. Drop Arm Rotator Cuff Test Results negative Levin Dixon Impingement Test Results mildly positive left; negative right PT-OP-M Strength Start: 10/20/21 15:30 Freq: Status: Active Protocol: Document 10/23/21 11:15 AW (Rec: 10/24/21 08:56 AW [id number]) Scapula Strength Scapula Manual Muscle Testing bilat Elevation (C4) 5 Normal Adduction 4 Good Abduction 4+ Good+ Depression 4 Good Shoulder Strength Shoulder Manual Muscle Testing Left Flexion 4+ Good+ Abduction (C5) 4+ Good+ External Rotation 4+ Good+ Internal Rotation 4+ Good+ Comments Pain reported with resisted flexion and ER Right Flexion 5 Normal Extension 5 Normal Abduction (C5) 5 Normal External Rotation 5 Normal Internal Rotation 5 Normal Elbow/Forearm Strength Elbow and Forearm Manual Muscle Testing bilat Flexion (C6) 5 Normal Extension (C7) 5 Normal PT-OP-Q Treatments Start: 10/20/21 15:30 Freq: Status: Active Protocol: Document 10/23/21 11:15 AW (Rec: 10/24/21 09:00 AW [id number]) Therapeutic Exercises Supine Exercises pec stretch Supine Exercise Name pec stretch Equipment Used table only; no elevation Reps/Minutes 30 SH x 2 Comments HEP Sitting Exercises GH ER/scap retract Sitting Exercise Name GH ER/scap retract Side bilateral Resistance TB2 Reps/Minutes 2x15 Comments cued isometric or pain free range as morgan; HEP Self-Care/Home Management Treatment Education Patient Education Joint Protection Other Education Educated pt on activity modification and pt was quite receptive. Educated pt on evaluation findings and proposed plan of care focused on postural stability, ROM, and strength. Pt in agreement. PT-OP-T Assessment and Plan Start: 10/20/21 15:30 Freq: Status: Active Protocol: Document 10/23/21 11:15 AW (Rec: 10/24/21 11:17 AW [id number]) Physical Therapy Assessment Rehab Potential Rehabilitation Potential Good Evaluation Complexity Number of Personal Factors/Comorbidities 1-2 Number of Body Systems Impaired 1-2 Clinical Presentation at Evaluation Stable Impairments Impairments Pain,Posture,ROM,Soft Tissue Mobility,Strength Goals Three Impairment limited participation in leisure activities Short Term Goal (STG) Pt will skip stones without increase in baseline pain STG Duration 4 weeks - 11/20/21 Coron[facility] Care Unit Nurse Goal (LTG) Pt will throw a softball without increase in baseline pain. LTG Duration 2 months - 12/23/21 Two Impairment pain with lifting and rotation Short Term Goal (STG) Pt will open a new jar with left hand without increase in baseline pain. STG Duration 4 weeks - 11/20/21 Longterm Goal (LTG) Pt will lift 5 pounds to shoulder height without increase in baseline pain to improve completion of household duties. LTG Duration 2 months - 12/23/21 One Impairment HEP Short Term Goal (STG) Pt will be instructed in progressive HEP for postural awareness, ROM, and strength to support therapy services provided in clinic STG Duration 4 weeks - 11/20/21 LTG Duration 2 months - 12/23/21 Assessment Summary Assessment Jm is a 71 yo man attending physical therapy with complaint of left shoulder pain and difficulty lifting after sustaining a fall down stairs a few months ago which likely exacerbated an existing injury. Although pt reports traction type of injury, he does not have any focal neuro deficits and his pain symptoms seem to align with musculoskeletal etiology. Habitual postures also likely perpetuate his symptoms. Jm is expected to benefit from skilled physical therapy to manage pain, promote postural awareness, and improve strength for return to leisure activities such as softball. Physical Therapy Plan Frequency and Duration Frequency of Treatment 1-2x/week Duration of Treatment 2 months Plan of Care Start Date 10/23/21 Plan of Care End Date 12/23/21 Therapeutic Interventions Therapeutic Interventions Home Exercise Program,Joint Mobilizations,Manual Therapy, Neuromuscular Re-education, Self-Care/Home Management,Soft Tissue Mobilization,Taping, Therapeutic Activities, Therapeutic Exercises Modalities Cold Pack/Ice Massage,Electric Stimulation,Hot Packs Next Visit Focus/Plan Next Note Type Treatment Note Next Visit Plan Review initial HEP. Progress postural education. Consider isometric shoulder strengthening all planes. STM upper traps, supra/ infraspinatus.
--- NOTE | 2021-10-23 12:00 | PT.OPPOC ---
Physical, Occupational & Speech Therapy At [facility] Current Diagnoses Abnormal posture (10/23/21) Strain of unspecified muscle, fascia and tendon at shoulder and upper arm level, left arm, initial encounter (10/23/21) Visit Care Team Role Provider Type SWETHA Ornelas Attending Provider Advanced 6Th Grade Teacher Family Provider Primary Care Provider Referring Provider Specialty: Family Practice Address: [address] [place] [address], [id number] Email: [email or web address] Plan Of Care PT-OP-T Assessment and Plan Start: 10/20/21 15:30 Freq: Status: Active Protocol: Document 10/23/21 11:15 AW (Rec: 10/24/21 11:17 AW [id number]) Physical Therapy Assessment Rehab Potential Rehabilitation Potential Good Evaluation Complexity Number of Personal Factors/Comorbidities 1-2 Number of Body Systems Impaired 1-2 Clinical Presentation at Evaluation Stable Impairments Impairments Pain,Posture,ROM,Soft Tissue Mobility,Strength Goals Three Impairment limited participation in leisure activities Short Term Goal (STG) Pt will skip stones without increase in baseline pain STG Duration 4 weeks - 11/20/21 Buckle Strap Puncher Goal (LTG) Pt will throw a softball without increase in baseline pain. LTG Duration 2 months - 12/23/21 Two Impairment pain with lifting and rotation Short Term Goal (STG) Pt will open a new jar with left hand without increase in baseline pain. STG Duration 4 weeks - 11/20/21 Buckle Strap Puncher Goal (LTG) Pt will lift 5 pounds to shoulder height without increase in baseline pain to improve completion of household duties. LTG Duration 2 months - 12/23/21 One Impairment HEP Short Term Goal (STG) Pt will be instructed in progressive HEP for postural awareness, ROM, and strength to support therapy services provided in clinic STG Duration 4 weeks - 11/20/21 LTG Duration 2 months - 12/23/21 Assessment Summary Assessment Jm is a 71 yo man attending physical therapy with complaint of left shoulder pain and difficulty lifting after sustaining a fall down stairs a few months ago which likely exacerbated an existing injury. Although pt reports traction type of injury, he does not have any focal neuro deficits and his pain symptoms seem to align with musculoskeletal etiology. Habitual postures also likely perpetuate his symptoms. Jm is expected to benefit from skilled physical therapy to manage pain, promote postural awareness, and improve strength for return to leisure activities such as softball. Physical Therapy Plan Frequency and Duration Frequency of Treatment 1-2x/week Duration of Treatment 2 [email or web address] Plan of Care Start Date 10/23/21 Plan of Care End Date 12/23/21 Therapeutic Interventions Therapeutic Interventions Home Exercise Program,Joint Mobilizations,Manual Therapy, Neuromuscular Re-education, Self-Care/Home Management,Soft Tissue Mobilization,Taping, Therapeutic Activities, Therapeutic Exercises Modalities Cold Pack/Ice Massage,Electric Stimulation,Hot Packs Next Visit Focus/Plan Next Note Type Treatment Note Next Visit Plan Review initial HEP. Progress postural education. Consider isometric shoulder strengthening all planes. STM upper traps, supra/ infraspinatus. Plan of Care Dates Plan of Care Start Date 10/23/21 Plan of Care End Date 12/23/21 Electronically Signed by: Ashley Hawthorne, PT 10/24/21 [id number] Please Sign and Return: I have reviewed this Plan of Care and certify that the skilled therapy services above are required to meet the patient?s needs. Physician Signature Date Printed Name and Credentials Clinical Instructor Signature Printed Name and Credentials
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
--- NOTE | 2021-11-14 12:12 | PT.OTN ---
Current Diagnoses Abnormal posture (11/14/21) Strain of unspecified muscle, fascia and tendon at shoulder and upper arm level, left arm, initial encounter (11/14/21) Physical Therapy Treatment Note PT-OP-A Visit Information Start: 10/20/21 15:30 Freq: Status: Active Protocol: Document 11/14/21 08:55 AW (Rec: 11/14/21 12:12 AW [id number]) Out-Patient Physical Therapy Visit Information Visit Information Visit Type Treatment Note Visit Start Time 10:30 Visit Stop Time 11:15 Total Visit Minutes 45 Visit Number 4/15 Number of SIZING MACHINE OPERATOR Visits 0 Evaluation Information Evaluation Date 10/23/21 PT-OP-B Current Condition Start: 10/20/21 15:30 Freq: Status: Active Protocol: Document 10/23/21 11:15 AW (Rec: 10/20/21 15:41 AW [id number]) Current Condition History of Current Condition Onset Date 4 months Current Complaints left shoulder pain History of Current Condition Jm was walking down carpeted stairs at home in stocking feet 4 months ago. He was taking stairs two at a time. His left foot slipped and he tried to stabilize with his left arm which got stuck behind him. He immediately had pain in his anterior shoulder . He reports he may have hurt his shoulder a few years ago. He was nursing it but it was functional until his recent fall. He played softball 30 years (outfield, first base, and pitcher). His shoulder is feeling ok but tires easily and he is hyperaware of it. He denies paresthesias. Rest and activity modification help. Sleeping on his side makes it worse. Lifting with arm extended makes it worse. He is left-hand dominant and has had trauma to his right forearm which left it with reduced muscle bulk. Prior Treatments and Tests No imaging Treatment Goals Patient/Caregiver Goals Throw a softball. Skip a rock. PT-OP-C Subjective Start: 10/20/21 15:30 Freq: Status: Active Protocol: Document 11/14/21 08:55 AW (Rec: 11/14/21 12:12 AW [id number]) OP-PT Subjective Patient Comments Patient Comments Pt went through all the exercises yesterday and feels he overdid it. PT-OP-F Manual Assessment Start: 10/20/21 15:30 Freq: Status: Active Protocol: Document 10/23/21 11:15 AW (Rec: 10/24/21 08:47 AW [id number]) Manual Assessments Soft Tissue Assessment Soft Tissue Mobility Assessment Dense upper traps bilaterally (left more affected than right ). Increased density of left pec major and minor. TTP at left supraspinatus, infraspinatus. Joint Mobility Assessment Joint Mobility Assessment Left GH inferior glide restriction compared with right. PT-OP-H Neuro Start: 10/20/21 15:30 Freq: Status: Active Protocol: Document 10/23/21 11:15 AW (Rec: 10/24/21 08:47 AW [id number]) Sensation Evaluation Gross Sensation Gross Sensation WNL Deep Tendon Reflex & Clonus Assessment Deep Tendon Reflex Bilateral Bicep Deep Tendon Reflex 2+ Normal PT-OP-J Posture/Palpation/Skin Start: 10/20/21 15:30 Freq: Status: Active Protocol: Document 10/23/21 11:15 AW (Rec: 10/24/21 08:47 AW [id number]) Posture Evaluation Comments Posture Comments Forward head posture. Humeral head sits anteriorly on both sides. Scapulae sit >4 finger widths from spinous processes. PT-OP-K Range of Motion Start: 10/20/21 15:30 Freq: Status: Active Protocol: Document 10/23/21 11:15 AW (Rec: 10/24/21 08:56 AW [id number]) Cervical Spine Range of Motion Cervical Spine Active Comments WNL without pain reproduction Shoulder Goniometric Range of Motion Shoulder left Shoulder ROM WFL Yes Testing Position Sitting Flexion 165 Abduction 170 External Rotation at 0 degrees Abduction 65 Internal Rotation Behind Back (text) T12 right Shoulder ROM WFL Yes Testing Position Sitting Flexion 175 Abduction 175 External Rotation at 0 degrees Abduction 65 Internal Rotation Behind Back (text) T6 Shoulder ROM Limitations Shoulder ROM Limitations Pain Elbow/Forearm Range of Motion Elbow/Forearm bilat Comments WNL PT-OP-L Special Tests Start: 10/20/21 15:30 Freq: Status: Active Protocol: Document 10/23/21 11:15 AW (Rec: 10/24/21 08:56 AW [id number]) Special Tests Cervical Spine Special Tests Spurling's Test Test Results negative bilaterally Shoulder Special Tests ER MMT Test Results positive left Painful Arc Test Results negative Comments Pain reported at 135 degrees abduction. Test is sensitive for pain in 60-120 degree range. Drop Arm Rotator Cuff Test Results negative Levin Dixon Impingement Test Results mildly positive left; negative right PT-OP-M Strength Start: 10/20/21 15:30 Freq: Status: Active Protocol: Document 10/23/21 11:15 AW (Rec: 10/24/21 08:56 AW [id number]) Scapula Strength Scapula Manual Muscle Testing bilat Elevation (C4) 5 Normal Adduction 4 Good Abduction 4+ Good+ Depression 4 Good Shoulder Strength Shoulder Manual Muscle Testing Left Flexion 4+ Good+ Abduction (C5) 4+ Good+ External Rotation 4+ Good+ Internal Rotation 4+ Good+ Comments Pain reported with resisted flexion and ER Right Flexion 5 Normal Extension 5 Normal Abduction (C5) 5 Normal External Rotation 5 Normal Internal Rotation 5 Normal Elbow/Forearm Strength Elbow and Forearm Manual Muscle Testing bilat Flexion (C6) 5 Normal Extension (C7) 5 Normal PT-OP-Q Treatments Start: 10/20/21 15:30 Freq: Status: Active Protocol: Document 11/14/21 08:55 AW (Rec: 11/14/21 12:12 AW [id number]) Cardio Equipment Upper Body Ergometer (UBE) Duration (Minutes) 5 RPM 75 Seat Position 12 Height 2.5 Other fwd/bwd - no pain Therapeutic Exercises Prone Exercises GH ext Prone Exercise Name GH ext and T's Side bilateral Resistance AROM Reps/Minutes 5SH x 15 Comments cued min elevation, LT recruitment; HEP Sidelying Exercises scapular PNF Sidelying Exercise Name scapular PNF Side left Resistance vs PT manual resistance Reps/Minutes 5 minutes Comments pt needs significant cues to reduce UT involvement GH ER Sidelying Exercise Name GH ER Side left Resistance AROM in tolerable range Reps/Minutes x20 Comments HEP Sitting Exercises UT stretch Sitting Exercise Name UT stretch Side bilateral Reps/Minutes 30SH x 4 Comments mirror for visual feedback of shoulder hike Manual Therapy Treatment Soft Tissue Mobilization UT, SCM, cervical paraspinals Body Location UT, SCM, cervical paraspinals Mobilization Type Strumming,Sustained Pressure Intensity/Depth Moderate Body Position Supine Self-Care/Home Management Treatment Education Patient Education Posture Other Education Used mirror for visual feedback of shoulder hike during stretches and reaching. Instructed pt to use a mirror at home for continued awareness. PT-OP-T Assessment and Plan Start: 10/20/21 15:30 Freq: Status: Active Protocol: Document 11/14/21 08:55 AW (Rec: 11/14/21 12:12 AW [id number]) Physical Therapy Assessment Goals Three Impairment limited participation in leisure activities Short Term Goal (STG) Pt will skip stones without increase in baseline pain STG Duration 4 weeks - 11/20/21 Custodial Goal (LTG) Pt will throw a softball without increase in baseline pain. LTG Duration 2 months - 12/23/21 Two Impairment pain with lifting and rotation Short Term Goal (STG) Pt will open a new jar with left hand without increase in baseline pain. STG Duration 4 weeks - 11/20/21 Supervisor Meter Shop Goal (LTG) Pt will lift 5 pounds to shoulder height without increase in baseline pain to improve completion of household duties. LTG Duration 2 months - 12/23/21 One Impairment HEP Short Term Goal (STG) Pt will be instructed in progressive HEP for postural awareness, ROM, and strength to support therapy services provided in clinic 11/14/21 - Pt needs max cues to reduce intensity, increase awareness of upper trap tone. STG Duration 4 weeks - 11/20/21 LTG Duration 2 months - 12/23/21 Assessment Summary Assessment Used mirror for visual feedback to address shoulder hike with all activities. Pt gave good feedback and appeared to have increased awareness of posture. Physical Therapy Plan Frequency and Duration Frequency of Treatment 1-2x/week Duration of Treatment 2 months Plan of Care Start Date 10/23/21 Plan of Care End Date 12/23/21 Therapeutic Interventions Therapeutic Interventions Home Exercise Program,Joint Mobilizations,Manual Therapy, Neuromuscular Re-education, Self-Care/Home Management,Soft Tissue Mobilization,Taping, Therapeutic Activities, Therapeutic Exercises Modalities Cold Pack/Ice Massage,Electric Stimulation,Hot Packs Next Visit Focus/Plan Next Note Type Treatment Note Next Visit Plan Review HEP. Progress postural education. Progress RC loading as tolerated - wall ball, resisted ER/IR. STM upper traps, supra/infraspinatus.
--- NOTE | 2021-11-28 16:02 | PT.OTN ---
Current Diagnoses Abnormal posture (11/28/21) Strain of unspecified muscle, fascia and tendon at shoulder and upper arm level, left arm, initial encounter (11/28/21) Physical Therapy Treatment Note PT-OP-A Visit Information Start: 10/20/21 15:30 Freq: Status: Active Protocol: Document 11/28/21 15:16 AW (Rec: 11/28/21 16:02 AW [id number]) Out-Patient Physical Therapy Visit Information Visit Information Visit Type Treatment Note Visit Start Time 15:15 Visit Stop Time 15:54 Total Visit Minutes 39 Visit Number /15 Number of DRY CLIPPER TENDER Visits 0 Evaluation Information Evaluation Date 10/23/21 PT-OP-B Current Condition Start: 10/20/21 15:30 Freq: Status: Active Protocol: Document 10/23/21 11:15 AW (Rec: 10/20/21 15:41 AW [id number]) Current Condition History of Current Condition Onset Date 4 months Current Complaints left shoulder pain History of Current Condition Jm was walking down carpeted stairs at home in stocking feet 4 months ago. He was taking stairs two at a time. His left foot slipped and he tried to stabilize with his left arm which got stuck behind him. He immediately had pain in his anterior shoulder . He reports he may have hurt his shoulder a few years ago. He was nursing it but it was functional until his recent fall. He played softball 30 years (outfield, first base, and pitcher). His shoulder is feeling ok but tires easily and he is hyperaware of it. He denies paresthesias. Rest and activity modification help. Sleeping on his side makes it worse. Lifting with arm extended makes it worse. He is left-hand dominant and has had trauma to his right forearm which left it with reduced muscle bulk. Prior Treatments and Tests No imaging Treatment Goals Patient/Caregiver Goals Throw a softball. Skip a rock. PT-OP-C Subjective Start: 10/20/21 15:30 Freq: Status: Active Protocol: Document 11/28/21 15:16 AW (Rec: 11/28/21 16:02 AW [id number]) OP-PT Subjective Patient Comments Patient Comments I think I slept funny and now my right shoulder is bothering me but the left feels good. Patient Reported Progress Improving PT-OP-F Manual Assessment Start: 10/20/21 15:30 Freq: Status: Active Protocol: Document 10/23/21 11:15 AW (Rec: 10/24/21 08:47 AW [id number]) Manual Assessments Soft Tissue Assessment Soft Tissue Mobility Assessment Dense upper traps bilaterally (left more affected than right ). Increased density of left pec major and minor. TTP at left supraspinatus, infraspinatus. Joint Mobility Assessment Joint Mobility Assessment Left GH inferior glide restriction compared with right. PT-OP-H Neuro Start: 10/20/21 15:30 Freq: Status: Active Protocol: Document 10/23/21 11:15 AW (Rec: 10/24/21 08:47 AW [id number]) Sensation Evaluation Gross Sensation Gross Sensation WNL Deep Tendon Reflex & Clonus Assessment Deep Tendon Reflex Bilateral Bicep Deep Tendon Reflex 2+ Normal PT-OP-J Posture/Palpation/Skin Start: 10/20/21 15:30 Freq: Status: Active Protocol: Document 10/23/21 11:15 AW (Rec: 10/24/21 08:47 AW [id number]) Posture Evaluation Comments Posture Comments Forward head posture. Humeral head sits anteriorly on both sides. Scapulae sit >4 finger widths from spinous processes. PT-OP-K Range of Motion Start: 10/20/21 15:30 Freq: Status: Active Protocol: Document 10/23/21 11:15 AW (Rec: 10/24/21 08:56 AW [id number]) Cervical Spine Range of Motion Cervical Spine Active Comments WNL without pain reproduction Shoulder Goniometric Range of Motion Shoulder left Shoulder ROM WFL Yes Testing Position Sitting Flexion 165 Abduction 170 External Rotation at 0 degrees Abduction 65 Internal Rotation Behind Back (text) T12 right Shoulder ROM WFL Yes Testing Position Sitting Flexion 175 Abduction 175 External Rotation at 0 degrees Abduction 65 Internal Rotation Behind Back (text) T6 Shoulder ROM Limitations Shoulder ROM Limitations Pain Elbow/Forearm Range of Motion Elbow/Forearm bilat Comments WNL PT-OP-L Special Tests Start: 10/20/21 15:30 Freq: Status: Active Protocol: Document 10/23/21 11:15 AW (Rec: 10/24/21 08:56 AW [id number]) Special Tests Cervical Spine Special Tests Spurling's Test Test Results negative bilaterally Shoulder Special Tests ER MMT Test Results positive left Painful Arc Test Results negative Comments Pain reported at 135 degrees abduction. Test is sensitive for pain in 60-120 degree range. Drop Arm Rotator Cuff Test Results negative Levin Dixon Impingement Test Results mildly positive left; negative right PT-OP-M Strength Start: 10/20/21 15:30 Freq: Status: Active Protocol: Document 10/23/21 11:15 AW (Rec: 10/24/21 08:56 AW [id number]) Scapula Strength Scapula Manual Muscle Testing bilat Elevation (C4) 5 Normal Adduction 4 Good Abduction 4+ Good+ Depression 4 Good Shoulder Strength Shoulder Manual Muscle Testing Left Flexion 4+ Good+ Abduction (C5) 4+ Good+ External Rotation 4+ Good+ Internal Rotation 4+ Good+ Comments Pain reported with resisted flexion and ER Right Flexion 5 Normal Extension 5 Normal Abduction (C5) 5 Normal External Rotation 5 Normal Internal Rotation 5 Normal Elbow/Forearm Strength Elbow and Forearm Manual Muscle Testing bilat Flexion (C6) 5 Normal Extension (C7) 5 Normal PT-OP-Q Treatments Start: 10/20/21 15:30 Freq: Status: Active Protocol: Document 11/28/21 15:16 AW (Rec: 11/28/21 16:02 AW [id number]) Therapeutic Exercises Supine Exercises lower trap activation Supine Exercise Name lower trap activation Side bilateral Comments HEP; cued 60% MVC diaphragmatic breathing Supine Exercise Name diaphragmatic breathing ( during STM and exercise) Comments in supine and sitting today Prone Exercises GH ext Prone Exercise Name GH ext and T's Side bilateral Resistance AROM Reps/Minutes 5SH x 15 Comments cued min elevation, LT recruitment; HEP Sidelying Exercises scapular PNF Sidelying Exercise Name scapular PNF Side left Resistance vs PT manual resistance Reps/Minutes 5 minutes Comments pt needs fewer cues to reduce UT involvement GH abduction Sidelying Exercise Name GH abduction Side left Resistance AROM in tolerable range Reps/Minutes 2x10 Comments HEP GH ER Sidelying Exercise Name GH ER Side left Resistance 2# in tolerable range Reps/Minutes 2x12 Comments HEP Sitting Exercises UT stretch Sitting Exercise Name UT stretch Side bilateral Reps/Minutes 30SH x 4 Comments mirror for visual feedback of shoulder hike Standing Exercises resisted ER Standing Exercise Name resisted ER Side left Resistance TB1 Reps/Minutes 2x15 Comments body to neutral; HEP Manual Therapy Treatment Soft Tissue Mobilization rhomboids Mobilization Type Myofascial Release Intensity/Depth Moderate Body Position Sidelying Joint Mobilizations scapulothoracic Joint scapulothoracic Direction inferior, medial, rotation Grade III Body Position Sidelying Self-Care/Home Management Treatment Education Patient Education Home Exercise Program,Posture Other Education Reviewed HEP for any questions . Pt thinks he may be ready for discharge and feels confident with home program. PT-OP-T Assessment and Plan Start: 10/20/21 15:30 Freq: Status: Active Protocol: Document 11/28/21 15:16 AW (Rec: 11/28/21 16:02 AW [id number]) Physical Therapy Assessment Goals Three Impairment limited participation in leisure activities Short Term Goal (STG) Pt will skip stones without increase in baseline pain STG Duration 4 weeks - 11/20/21 Assisted Goal (LTG) Pt will throw a softball without increase in baseline pain. 11/28/21 - Pt is able to elevate weight of arm + five pounds to throwing position but does not feel comfortable generating rotational force to throw. LTG Duration 2 months - 12/23/21 Two Impairment pain with lifting and rotation Short Term Goal (STG) Pt will open a new jar with left hand without increase in baseline pain. 11/28/21 - MET STG Duration 4 weeks - 11/20/21 Nurse Esthetician Goal (LTG) Pt will lift 5 pounds to shoulder height without increase in baseline pain to improve completion of household duties. 11/28/21 - MET LTG Duration 2 months - 12/23/21 One Impairment HEP Short Term Goal (STG) Pt will be instructed in progressive HEP for postural awareness, ROM, and strength to support therapy services provided in clinic 11/14/21 - Pt needs max cues to reduce intensity, increase awareness of upper trap tone. STG Duration 4 weeks - 11/20/21 LTG Duration 2 months - 12/23/21 Assessment Summary Assessment Pt feels his symptoms have improved significantly and he no longer hesitates to use his left arm except in throwing. Will leave pt chart open through end of POC but pt may elect to cancel final appointment. Physical Therapy Plan Frequency and Duration Frequency of Treatment 1-2x/week Duration of Treatment 2 months Plan of Care Start Date 10/23/21 Plan of Care End Date 12/23/21 Therapeutic Interventions Therapeutic Interventions Home Exercise Program,Joint Mobilizations,Manual Therapy, Neuromuscular Re-education, Self-Care/Home Management,Soft Tissue Mobilization,Taping, Therapeutic Activities, Therapeutic Exercises Modalities Cold Pack/Ice Massage,Electric Stimulation,Hot Packs Next Visit Focus/Plan Next Note Type Discharge Summary
--- NOTE | 2021-12-19 10:07 | PT.OPDS ---
Current Diagnoses Abnormal posture (11/28/21) Strain of unspecified muscle, fascia and tendon at shoulder and upper arm level, left arm, initial encounter (11/28/21) Visit Care Team Role Provider Type SWETHA Ornelas Attending Provider Advanced Linderman Operator Family Provider Primary Care Provider Referring Provider Specialty: Medical Address: [address] [place] [address], [id number] Email: [email or web address] Visit Number Visit Number 01/05 Discharge Summary PT-OP-B Current Condition Start: 10/20/21 15:30 Freq: Status: Active Protocol: Document 10/23/21 11:15 AW (Rec: 10/20/21 15:41 AW [id number]) Current Condition History of Current Condition Onset Date 4 months Current Complaints left shoulder pain History of Current Condition Jm was walking down carpeted stairs at home in stocking feet 4 months ago. He was taking stairs two at a time. His left foot slipped and he tried to stabilize with his left arm which got stuck behind him. He immediately had pain in his anterior shoulder . He reports he may have hurt his shoulder a few years ago. He was nursing it but it was functional until his recent fall. He played softball 30 years (outfield, first base, and pitcher). His shoulder is feeling ok but tires easily and he is hyperaware of it. He denies paresthesias. Rest and activity modification help. Sleeping on his side makes it worse. Lifting with arm extended makes it worse. He is left-hand dominant and has had trauma to his right forearm which left it with reduced muscle bulk. Prior Treatments and Tests No imaging Treatment Goals Patient/Caregiver Goals Throw a softball. Skip a rock. PT-OP-C Subjective Start: 10/20/21 15:30 Freq: Status: Active Protocol: Document 11/28/21 15:16 AW (Rec: 11/28/21 16:02 AW [id number]) OP-PT Subjective Patient Comments Patient Comments I think I slept funny and now my right shoulder is bothering me but the left feels good. Patient Reported Progress Improving PT-OP-F Manual Assessment Start: 10/20/21 15:30 Freq: Status: Active Protocol: Document 10/23/21 11:15 AW (Rec: 10/24/21 08:47 AW [id number]) Manual Assessments Soft Tissue Assessment Soft Tissue Mobility Assessment Dense upper traps bilaterally (left more affected than right ). Increased density of left pec major and minor. TTP at left supraspinatus, infraspinatus. Joint Mobility Assessment Joint Mobility Assessment Left GH inferior glide restriction compared with right. PT-OP-H Neuro Start: 10/20/21 15:30 Freq: Status: Active Protocol: Document 10/23/21 11:15 AW (Rec: 10/24/21 08:47 AW [id number]) Sensation Evaluation Gross Sensation Gross Sensation WNL Deep Tendon Reflex & Clonus Assessment Deep Tendon Reflex Bilateral Bicep Deep Tendon Reflex 2+ Normal PT-OP-J Posture/Palpation/Skin Start: 10/20/21 15:30 Freq: Status: Active Protocol: Document 10/23/21 11:15 AW (Rec: 10/24/21 08:47 AW [id number]) Posture Evaluation Comments Posture Comments Forward head posture. Humeral head sits anteriorly on both sides. Scapulae sit >4 finger widths from spinous processes. PT-OP-K Range of Motion Start: 10/20/21 15:30 Freq: Status: Active Protocol: Document 10/23/21 11:15 AW (Rec: 10/24/21 08:56 AW [id number]) Cervical Spine Range of Motion Cervical Spine Active Comments WNL without pain reproduction Shoulder Goniometric Range of Motion Shoulder left Shoulder ROM WFL Yes Testing Position Sitting Flexion 165 Abduction 170 External Rotation at 0 degrees Abduction 65 Internal Rotation Behind Back (text) T12 right Shoulder ROM WFL Yes Testing Position Sitting Flexion 175 Abduction 175 External Rotation at 0 degrees Abduction 65 Internal Rotation Behind Back (text) T6 Shoulder ROM Limitations Shoulder ROM Limitations Pain Elbow/Forearm Range of Motion Elbow/Forearm bilat Comments WNL PT-OP-L Special Tests Start: 10/20/21 15:30 Freq: Status: Active Protocol: Document 10/23/21 11:15 AW (Rec: 10/24/21 08:56 AW [id number]) Special Tests Cervical Spine Special Tests Spurling's Test Test Results negative bilaterally Shoulder Special Tests ER MMT Test Results positive left Painful Arc Test Results negative Comments Pain reported at 135 degrees abduction. Test is sensitive for pain in 60-120 degree range. Drop Arm Rotator Cuff Test Results negative Levin Dixon Impingement Test Results mildly positive left; negative right PT-OP-M Strength Start: 10/20/21 15:30 Freq: Status: Active Protocol: Document 10/23/21 11:15 AW (Rec: 10/24/21 08:56 AW [id number]) Scapula Strength Scapula Manual Muscle Testing bilat Elevation (C4) 5 Normal Adduction 4 Good Abduction 4+ Good+ Depression 4 Good Shoulder Strength Shoulder Manual Muscle Testing Left Flexion 4+ Good+ Abduction (C5) 4+ Good+ External Rotation 4+ Good+ Internal Rotation 4+ Good+ Comments Pain reported with resisted flexion and ER Right Flexion 5 Normal Extension 5 Normal Abduction (C5) 5 Normal External Rotation 5 Normal Internal Rotation 5 Normal Elbow/Forearm Strength Elbow and Forearm Manual Muscle Testing bilat Flexion (C6) 5 Normal Extension (C7) 5 Normal PT-OP-T Assessment and Plan Start: 10/20/21 15:30 Freq: Status: Active Protocol: Document 12/19/21 10:05 AW (Rec: 12/19/21 10:07 AW [id number]) Physical Therapy Assessment Goals Three Impairment limited participation in leisure activities Short Term Goal (STG) Pt will skip stones without increase in baseline pain STG Duration 4 weeks - 11/20/21 Skilled Nursing Goal (LTG) Pt will throw a softball without increase in baseline pain. 11/28/21 - Pt is able to elevate weight of arm + five pounds to throwing position but does not feel comfortable generating rotational force to throw. LTG Duration 2 months - 12/23/21 Two Impairment pain with lifting and rotation Short Term Goal (STG) Pt will open a new jar with left hand without increase in baseline pain. 11/28/21 - MET STG Duration 4 weeks - 11/20/21 Professional Wrestler Goal (LTG) Pt will lift 5 pounds to shoulder height without increase in baseline pain to improve completion of household duties. 11/28/21 - MET LTG Duration 2 months - 12/23/21 One Impairment HEP Short Term Goal (STG) Pt will be instructed in progressive HEP for postural awareness, ROM, and strength to support therapy services provided in clinic 11/14/21 - Pt needs max cues to reduce intensity, increase awareness of upper trap tone. STG Duration 4 weeks - 11/20/21 LTG Duration 2 months - 12/23/21 Physical Therapy Plan Discharge Physical Therapy Discharge Reasons Goals Met Discharge Comments Pt attended five sessions of outpatient PT and progressed his left shoulder ROM and strength to his satisfaction. He was still uncomfortable generating enough force to throw a ball but felt ready for discharge. Pt understands he will need a new referral to return to PT.
== END 2021-12-20 08:47 | disposition home or self-care (01) ==
LOC: PHYS 15:15
PROVIDERS: Family Provider Nurse Practitioner Family; PCP Nurse Practitioner Family; Referring Provider Nurse Practitioner Family; Visit Provider Nurse Practitioner Family
DX: S46.912A Strain of unspecified muscle, fascia and tendon at shoulder and upper arm level, left arm, initial encounter (principal); R29.3 Abnormal posture
CPT/HCPCS: 97110; 97140; 97161; 97535

== ENCOUNTER → 2022-07-11 10:11 | Outpatient (CLI) | payer OTHER, SELFPAY ==
[2021-02-05 11:19] VITALS: BMI 28.0
--- NOTE | 2022-07-11 10:12 | DI.RAD.S_ITS ---
PROCEDURE: XR HAND RT MIN 3V INDICATIONS: right thumb pain TECHNIQUE: 3 views of the hand(s) acquired. COMPARISON: None. 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 Suspected old ulnar styloid injury fragment. Soft tissues: No suspicious soft tissue calcifications. 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 Suspected old injury at the ulnar styloid. Dictated by: Jah Morelos M.D. on 07/11/2022 at 11:53 Approved by: Jah Morelos M.D. on 07/11/2022 at 11:54
--- NOTE | 2022-07-11 10:12 | DI.RAD.S_ITS ---
PROCEDURE: XR KNEE RT 3V INDICATIONS: right knee pain TECHNIQUE: 3 views of the knee were acquired. COMPARISON: None. FINDINGS: Bones: Minimal arthrosis. No acute fracture or dislocation. Soft tissues: Small joint effusion is suspected to be present. IMPRESSION: No acute radiographic abnormality. If there is high concern for further derangement, consider MRI evaluation. Dictated by: Jah Morelos M.D. on 07/11/2022 at 11:54 Approved by: Jah Morelos M.D. on 07/11/2022 at 11:55
== END ==
PROVIDERS: Family Provider Nurse Practitioner Family; PCP Family Medicine; Referring Provider Family Medicine; Visit Provider Family Medicine
DX: M18.11 Unilateral primary osteoarthritis of first carpometacarpal joint, right hand (principal); M79.644 Pain in right finger(s); M25.561 Pain in right knee
CPT/HCPCS: 73130; 73562

== ENCOUNTER → 2022-08-21 06:51 | Outpatient (CLI) | payer OTHER, SELFPAY ==
[2021-02-05 11:19] VITALS: BMI 28.0
[2022-08-21 08:43] LABS: BUN Creatinine Ratio 20.5 (6-22); Blood Urea Nitrogen 18 mg/dL (9-20); Calcium 9.2 mg/dL (8.4-10.2); Carbon Dioxide 29 mmol/L (22-32); Chloride 101 mmol/L (98-107); Cholesterol 167 mg/dL (140-199); Estimated Glomerular Filt Rate > 60 mL/min (>60); Glucose 94 mg/dL (80-110); HDL Cholesterol 53 mg/dL (40-60); HEMOLYSIS < 15 (0-50); LDL Cholesterol Calculated 98 mg/dL (<100); Potassium 4.1 mmol/L (3.4-5.1); Sodium 139 mmol/L (137-145); Triglycerides 79 mg/dL (35-150)
== END ==
PROVIDERS: Family Provider Nurse Practitioner Family; PCP Family Medicine; Referring Provider Internal Medicine Interventional Cardiology; Visit Provider Internal Medicine Interventional Cardiology
DX: E78.49 Other hyperlipidemia (principal); I35.1 Nonrheumatic aortic (valve) insufficiency
CPT/HCPCS: 36415; 80048; 80061

== ENCOUNTER → 2022-10-11 07:22 | Outpatient (CLI) | payer OTHER, SELFPAY ==
[2021-02-05 11:19] VITALS: BMI 28.0
[2022-10-11 09:10] LABS: Add Manual Diff / Slide Review NO; Basophils Absolute Auto 0 /uL (0-100); Basophils Percent Auto 0.7 % (0-2); Eosinophils Absolute Auto 100 /uL (0-450); Eosinophils Percent Auto 2.4 % (2-4); Hematocrit 40.5 % (41-53); Hemoglobin 14.2 g/dL (13.5-17.5); Lymphocytes Absolute Auto 2000 /uL (1100-4500); Lymphocytes Percent Auto 31.7 % (25-40); Mean Corpuscular HGB Conc 35.1 % (30-36); Mean Corpuscular Hemoglobin 27.9 PG (26-34); Mean Corpuscular Volume 79.4 fL (80-100); Monocytes Absolute Auto 600 /uL (0-900); Monocytes Percent Auto 9.2 % (3-14); Neutrophils Absolute Auto 3500 /uL (1500-7000); Platelet Count 244 X10^3/uL (150-400); Red Cell Distribution Width 13.5 % (11.6-14.8); White Blood Cell Count 6.2 X10^3/uL (4.5-11.0)
[2022-10-11 09:31] LABS: Alanine Aminotransferase 48 IU/L (<50); Albumin 4.3 g/dL (3.5-5.0); Albumin Globulin Ratio 1.7 (1.0-2.8); Alkaline Phosphatase 94 U/L (38-126); Aspartate Aminotransferase 37 IU/L (17-59); BUN Creatinine Ratio 18.7 (6-22); Blood Urea Nitrogen 17 mg/dL (9-20); Calcium 9.2 mg/dL (8.4-10.2); Carbon Dioxide 30 mmol/L (22-32); Chloride 99 mmol/L (98-107); Cholesterol 143 mg/dL (140-199); Estimated Glomerular Filt Rate > 60 mL/min (>60); Globulin 2.6 g/dL (1.7-4.1); Glucose 91 mg/dL (80-110); HDL Cholesterol 51 mg/dL (40-60); HEMOLYSIS < 15 (0-50); LDL Cholesterol Calculated 79 mg/dL (<100); Potassium 4.4 mmol/L (3.4-5.1); Sodium 138 mmol/L (137-145); Total Protein 6.9 g/dL (6.3-8.2); Triglycerides 63 mg/dL (35-150)
[2022-10-11 09:54] LABS: Creatinine Urine Random 231.8 mg/dL
[2022-10-11 09:59] LABS: Microalbumin Urine Random 3.5 mg/dL (0-1.6)
[2022-10-11 09:59] LABS: Prostate Specific Antigen Scrn 7.28 ng/mL (0.1-4.0)
[2022-10-11 10:35] LABS: TSH w/ Reflex to FT4 1.95 uIU/mL (0.47-4.68)
[2022-10-11 16:38] LABS: Hep C Virus Ab w/Reflex Quant NEGATIVE s/c (NEGATIVE)
== END ==
PROVIDERS: Family Provider Nurse Practitioner Family; PCP Family Medicine; Referring Provider Family Medicine; Visit Provider Family Medicine
DX: E78.2 Mixed hyperlipidemia (principal); Z12.5 Encounter for screening for malignant neoplasm of prostate; I10 Essential (primary) hypertension; R97.20 Elevated prostate specific antigen [PSA]
CPT/HCPCS: 36415; 80053; 80061; 82043; 82570; 84443; 85025; 86803; G0103

== ENCOUNTER → 2023-05-14 06:41 | Outpatient (CLI) | payer OTHER, SELFPAY ==
[2021-02-05 11:19] VITALS: BMI 28.0
--- NOTE | 2023-05-14 06:42 | DI.ECHO.S_ITS ---
[facility] +---------+ : : [address] [place] [address] : : : : [id number] : : : : Phone: [phone]---------+ Echocardiogram Report + + :Name: AGUS PIÑA Study Date: 05/14/2023 Height: 72 in : :[facility] ReadingLocation: Weight: 203 lb : : Gender: Male BSA: 2.1 m2 : :: 1950 Age: 73 yrs BP: 142/72 mmHg: :Reason For Study: CHEST PAIN : :Ordering Physician: CAROLINE, : :VESNA Performed By: Briseyda Aldana : :Referring: VESNA VELAZQUEZ : + + Interpretation Summary The left ventricle is borderline dilated. The ejection fraction is estimated to be 55-60%. Diastolic function could not be accurately assessed due to unobtainable data. The left atrium is mildly dilated. The right ventricle is normal in size and function. There is mild to moderate aortic regurgitation. Pulmonary artery pressures cannot be estimated because of the lack of a measurable TR jet velocity but the IVC suggests a CVP of around 3 mmHg. The aortic root is mildly dilated, 4.4 cm. Procedure: A two-dimensional transthoracic echocardiogram with color flow and Doppler was performed. The study quality was technically adequate. There is no prior echocardiogram noted for this patient. The patient was in sinus rhythm with heart rates between 54-61 bpm during the exam. Left Ventricle: The estimated left ventricular end diastolic volume is 142 ml. The left ventricle is borderline dilated. Left ventricular wall thickness is normal. The ejection fraction is estimated to be 55-60%. Diastolic function could not be accurately assessed due to unobtainable data. Right Ventricle: The right ventricle is normal in size and function. Atria: The left atrium is mildly dilated. Right atrial size is normal. There is no Doppler evidence for an interatrial shunt. Mitral Valve: The mitral valve is normal. There is mild mitral annular calcification. There is trace mitral regurgitation. Aortic Valve: The aortic valve opens well. There is no aortic valve stenosis. The peak aortic velocity is 1.6 m/sec. The aortic valve mean gradient is 6 mmHg. There is mild to moderate aortic regurgitation. Tricuspid Valve: The tricuspid valve is normal in structure and function. There is trace tricuspid regurgitation. Pulmonary artery pressures cannot be estimated because of the lack of a measurable TR jet velocity but the IVC suggests a CVP of around 3 mmHg. Pulmonic Valve: The pulmonic valve leaflets are thin and pliable; valve motion is normal. There is mild pulmonic regurgitation. Great Vessels: The aortic root is mildly dilated. The ascending aorta is at the upper limits of normal in size. The IVC is of normal diameter and collapses greater than 50% with a sniff. This suggests a low right atrial pressure of 3 mm Hg. Pericardium/ Pleura There is no pericardial effusion. There is no pleural effusion. MMode/2D Measurements & Calculations LVIDd: 6.2 cm LVOT diam: 2.4 cm LVIDs: 4.6 cm Ao root diam: 4.4 cm FS: 26.3 % asc Aorta Diam: 3.9 cm EPSS: 0.26 cm Ao Arch Diam (Prox Trans): 3.0 cm IVSd: 1.0 cm LVPWd: 0.87 cm LV quezada. diameter/BSA (cm/m^2): 2.9 LV sys. diameter/BSA (cm/m^2): 2.1 LA A2 area: 26.6 cm2 RA long axis: 5.3 cm LA A4 area: 18.0 cm2 RA area: 19.7 cm2 LA length (vol): 5.5 cm RA vol: 62.7 ml LA vol: 74.3 ml RA : 29.3 ml/m2 LA vol index: 34.7 ml/m2 IVC diam: 1.8 cm RVD1 (basal): 3.8 cm RVD2 (mid): 2.5 cm TAPSE: 2.4 cm Doppler Measurements & Calculations Ao V2 max: 158.2 cm/sec LVOT Max Phillip: 118.1 cm/sec Ao V2 mean: 105.8 cm/sec LV V1 max P.6 mmHg Ao max P.1 mmHg LV V1 VTI: 28.4 cm Ao mean P.6 mmHg ROMI(I,D): 3.3 cm2 Ao V2 VTI: 37.8 cm ROMI(V,D): 3.3 cm2 sev ratio: 0.75 ROMI indexed to BSA (cm^2/m^2): 1.5 AI P1/2t: 565.7 msec AI dec slope: 187.7 cm/sec2 MV E max phillip: 93.6 cm/sec PA V2 max: 83.6 cm/sec MV A max phillip: 50.7 cm/sec PA V2 mean: 57.4 cm/sec MV E/A: 1.8 PA mean P.5 mmHg Med Peak E' Phillip: 6.4 cm/sec PA pr(Accel): 24.2 mmHg E/E' med: 14.7 Lat Peak E' Phillip: 7.1 cm/sec E/E' lat: 13.1 E/e' average: 13.9 MV dec time: 0.25 sec SV(LVOT): 124.4 ml Reading Physician:08:49 AM
[2023-05-14 10:07] LABS: Erythrocyte Sedimentation Rate 6 MM/HR (0-15)
[2023-05-14 11:26] LABS: C-Reactive Protein Quant < 0.5 mg/dL (<1.0)
[2023-05-14 13:34] LABS: Rheumatoid Factor < 8.6 IU/mL (<12.0)
[2023-05-18 16:35] LABS: ANA Screen, IFA Negative (.)
== END ==
PROVIDERS: PCP Family Medicine; Referring Provider Family Medicine; Visit Provider Family Medicine
DX: I37.1 Nonrheumatic pulmonary valve insufficiency (principal); I77.810 Thoracic aortic ectasia; R07.89 Other chest pain; I35.1 Nonrheumatic aortic (valve) insufficiency; I10 Essential (primary) hypertension; E78.2 Mixed hyperlipidemia; E07.89 Other specified disorders of thyroid; M25.541 Pain in joints of right hand; M25.542 Pain in joints of left hand; M79.641 Pain in right hand; M79.642 Pain in left hand
CPT/HCPCS: 36415; 85651; 86038; 86140; 86430; 93306

== ENCOUNTER → 2023-12-24 14:21 | Outpatient (CLI) | payer OTHER, SELFPAY ==
[2021-02-05 11:19] VITALS: BMI 28.0
--- NOTE | 2023-12-24 14:22 | DI.RAD.S_ITS ---
PROCEDURE: XR SHOULDER RT MIN 2V INDICATIONS: chronic right shoulder pain TECHNIQUE: 3 views of the shoulder were acquired. COMPARISON: None. FINDINGS: Bones: No fractures or dislocations. Mild degenerative changes of the glenohumeral acromioclavicular joints. No suspicious bony lesions. Visualized ribs appear intact. Soft tissues: No suspicious soft tissue calcifications. IMPRESSION: No acute osseous abnormalities. Mild degenerative changes of the glenohumeral and acromioclavicular joints. Dictated by: Andrei Quinn M.D. on 12/24/2023 at 16:41 Approved by: Andrei Quinn M.D. on 12/24/2023 at 16:42
== END ==
PROVIDERS: PCP Family Medicine; Referring Provider Family Medicine; Visit Provider Family Medicine
DX: M25.511 Pain in right shoulder (principal); G89.29 Other chronic pain
CPT/HCPCS: 73030

== ENCOUNTER → 2025-05-03 06:57 | Outpatient (CLI) | payer OTHER, SELFPAY ==
[2021-02-05 11:19] VITALS: BMI 28.0
[2025-05-03 07:49] LABS: Add Manual Diff / Slide Review NO; Hematocrit 39.6 % (41-53); Hemoglobin 13.9 g/dL (13.5-17.5); Lymphocytes Absolute Auto 1700 /uL (1100-4500); Mean Corpuscular HGB Conc 35.0 % (30-36); Mean Corpuscular Hemoglobin 28.6 PG (26-34); Mean Corpuscular Volume 81.7 fL (80-100); Platelet Count 229 X10^3/uL (150-400)
[2025-05-03 08:02] LABS: Alanine Aminotransferase 43 IU/L (<50); Albumin 4.4 g/dL (3.5-5.0); Albumin Globulin Ratio 1.8 (1.0-2.8); Alkaline Phosphatase 79 U/L (38-126); Blood Urea Nitrogen 20 mg/dL (9-20); Calcium 9.5 mg/dL (8.4-10.2); Carbon Dioxide 27 mmol/L (22-32); Chloride 103 mmol/L (98-107); Cholesterol 170 mg/dL (140-199); Estimated Glomerular Filt Rate > 60 mL/min (>60); Globulin 2.4 g/dL (1.7-4.1); Glucose 101 mg/dL (70-99); HDL Cholesterol 58 mg/dL (40-60); HEMOLYSIS < 15 (0-50); Potassium 4.4 mmol/L (3.4-5.1); Sodium 138 mmol/L (137-145); Total Protein 6.8 g/dL (6.3-8.2); Triglycerides 79 mg/dL (35-150)
[2025-05-03 08:33] LABS: TSH w/ Reflex to FT4 2.46 uIU/mL (0.47-4.68)
[2025-05-03 08:57] LABS: Microalbumi Creatinin Ratio Ur 22.0 ug/mg CR (<30)
[2025-05-03 09:08] LABS: Hep C Virus Ab w/Reflex Quant NEGATIVE s/c (NEGATIVE)
== END ==
PROVIDERS: PCP Family Medicine; Referring Provider Family Medicine; Visit Provider Family Medicine
DX: Z00.00 Encounter for general adult medical examination without abnormal findings (principal); R97.20 Elevated prostate specific antigen [PSA]; E78.2 Mixed hyperlipidemia; Z12.5 Encounter for screening for malignant neoplasm of prostate; I10 Essential (primary) hypertension
CPT/HCPCS: 36415; 80053; 80061; 82043; 82172; 82570; 84443; 85025; 86803; G0103

== ENCOUNTER → 2025-06-29 10:43 | Outpatient (CLI) | payer OTHER, SELFPAY ==
[2025-06-14 09:24] VITALS: BMI 28.0
== END ==
LOC: PHYS 10:44
PROVIDERS: Family Provider Family Medicine; PCP Family Medicine; Referring Provider Family Medicine; Visit Provider Family Medicine
DX: R20.0 Anesthesia of skin (principal); G62.9 Polyneuropathy, unspecified
CPT/HCPCS: 95886; 95911

== ENCOUNTER → 2025-07-10 07:09 | Outpatient (CLI) | payer OTHER, SELFPAY ==
[2025-06-14 09:24] VITALS: BMI 28.0
--- NOTE | 2025-07-10 07:10 | DI.MRI.S_ITS ---
PROCEDURE: MR PELVIC PROSTATE PROTOCOL INDICATIONS: 75 y/o M w/ elevated PSA, please eval TECHNIQUE: Coronal HASTE, axial T1 FSE with fat saturation, 3-plane nonbreath-hold T2 FSE. After the administration of contrast, dynamic axial, delayed axial and coronal VIBE or 2-D FLASH with fat saturation through the pelvis. Diffusion weighted imaging and ADC was performed. COMPARISON: None. FINDINGS: Image quality: Diffusion weighted and dynamic contrast enhanced images are diagnostic. Prostate: Gland size is 4.8 x 3.8 x 4.6 cm; ellipsoid gland volume is 43.6 mL. Elevated PSA density at 0.25 Transitional zone heterogenous nodules are present, either well encapsulated or mostly encapsulated, compatible with PI-RADS 1 or 2 likely BPH nodules. Right mid gland peripheral zone posterior lesion measuring 2.2 x 1.3 x 1.9 cm. Capsular bulging is present. DWI score 5. T2 score 5. DCE positive. A small portion of the lesion extends into the left prostate. This also extends to the apex. PI-RADS 5. Genitourinary system: Seminal vesicles appear clear. Bowel and peritoneum: No bowel obstruction. No pathologic ascites. Nodes and vessels: No lymph nodes enlarged by size criteria No aneurysmal vessel identified Soft tissues: Small fat containing inguinal hernias Bones: No aggressive appearing osseous abnormality IMPRESSION: PI-RADS 5 lesion in the right prostate with capsular bulging suggestive of capsular invasion. A small portion of the lesion extends to the left prostate. No pelvic lymphadenopathy by size criteria. No aggressive osseous abnormality. Seminal vesicles appear clear Dictated by: Jah Morelos M.D. on 07/10/2025 at 8:51 Approved by: Jah Morelos M.D. on 07/10/2025 at 9:03
== END ==
LOC: MRI 07:10
PROVIDERS: Family Provider Family Medicine; PCP Family Medicine; Referring Provider Family Medicine; Visit Provider Urology
DX: R97.20 Elevated prostate specific antigen [PSA] (principal); N42.9 Disorder of prostate, unspecified; K40.90 Unilateral inguinal hernia, without obstruction or gangrene, not specified as recurrent
CPT/HCPCS: 72197; A9579

== ENCOUNTER → 2025-07-27 09:44 | Outpatient (CLI) | payer OTHER, SELFPAY ==
[2025-06-14 09:24] VITALS: BMI 28.0
--- NOTE | 2025-07-27 09:45 | DI.RAD.S_ITS ---
PROCEDURE: XR FINGER LT MIN 2V INDICATIONS: jammed/fell on finger 3 weeks ago DIP bent TECHNIQUE: AP hand, 2 views of the 3rd finger(s) acquired. COMPARISON: None. FINDINGS: Bones: Displaced avulsion fracture of the dorsal base of the third distal phalanx. Soft tissues: No suspicious soft tissue calcifications. IMPRESSION: Avulsion fracture at the dorsal base of the 3rd distal phalanx. Dictated by: Anderi Quinn M.D. on 07/27/2025 at 13:30 Approved by: Andrei Quinn M.D. on 07/27/2025 at 13:31
== END ==
PROVIDERS: Family Provider Family Medicine; PCP Family Medicine; Referring Provider Physician Assistant; Visit Provider Physician Assistant
DX: S62.633A Displaced fracture of distal phalanx of left middle finger, initial encounter for closed fracture (principal); W19.XXXA Unspecified fall, initial encounter
CPT/HCPCS: 73140